=== PATIENT | female | born 1995 | race Caucasian/White ===

== ENCOUNTER 2017-02-02 21:53 | Emergency (ER) | payer OTHER ==
[2017-02-02 21:59] VITALS: BP 115/73; PULSE 132; RESP 18; TEMP 101.8
[2017-02-02] MEDS ORDERED: ACETAMINOPHEN TAB 500 MG TAB PO STA (22:02)
[2017-02-02] MEDS ORDERED: BENZONATATE 100 MG CAP PO STA (22:02)
[2017-02-02] MEDS ORDERED: IBUPROFEN 800 MG TAB PO STA (22:02)
--- NOTE | 2017-02-02 22:18 | ED ---
General Adult HPI - General Chief complaint: Fever Stated complaint: hot & cold/vomiting/cough Time Seen by Provider: 02/02/17 22:00 Source: patient, RN notes reviewed, old records reviewed Mode of arrival: ambulatory Limitations: no limitations - History of Present Illness Initial comments: This is a 22-year-old female here for evaluation of fever. Fever and chills, no significant medical history takes no medications occasional smoker. No drugs or alcohol recent about a year ago. Patient states she is having cough and congestion fevers and chills starting last night worsening today. She did take Motrin once but not consistently. Patient denies bowel pain, denies nausea vomiting or diarrhea. No significant travel history or sick contacts - Related Data Home Medications Medication Instructions Recorded Confirmed No Known Home Medications [No 02/02/17 02/02/17 Known Home Medications] Allergies Allergy/AdvReac Type Severity Reaction Status Date / Time Penicillins Allergy Intermediate Rash/Hives Verified 02/02/17 21:59 Review of Systems ROS Statement: Those systems with pertinent positive or pertinent negative responses have been documented in the HPI. ROS Other: All systems not noted in ROS Statement are negative. Past Medical History Past Medical History: No Reported History Additional Past Medical History / Comment(s): back pain History of Any Multi-Drug Resistant Organisms: None Reported Past Surgical History: Orthopedic Surgery Past Anesthesia/Blood Transfusion Reactions: No Reported Reaction Past Psychological History: Anxiety, Depression Smoking Status: Former smoker Past Alcohol Use History: None Reported Past Drug Use History: None Reported - Past Family History Mother Family Medical History: No Reported History General Exam Limitations: no limitations General appearance: alert, in no apparent distress Head exam: Present: atraumatic, normocephalic, normal inspection Eye exam: Present: normal appearance, PERRL, EOMI. Absent: scleral icterus, conjunctival injection, periorbital swelling ENT exam: Present: mucous membranes dry Neck exam: Present: normal inspection. Absent: tenderness, meningismus, lymphadenopathy Respiratory exam: Present: normal lung sounds bilaterally. Absent: respiratory distress, wheezes, rales, rhonchi, stridor Cardiovascular Exam: Present: normal rhythm, tachycardia, normal heart sounds. Absent: systolic murmur, diastolic murmur, rubs, gallop, clicks GI/Abdominal exam: Present: soft, normal bowel sounds. Absent: distended, tenderness, guarding, rebound, rigid Extremities exam: Present: normal inspection, full ROM, normal capillary refill. Absent: tenderness, pedal edema, joint swelling, calf tenderness Back exam: Present: normal inspection Neurological exam: Present: alert, oriented X3, CN II-XII intact Psychiatric exam: Present: normal affect, normal mood Skin exam: Present: warm, dry, intact, normal color. Absent: rash Course Vital Signs 02/02/17 21:56 Temperature 101.8 F H Pulse Rate 132 H Respiratory 18 Rate Blood Pressure 115/73 O2 Sat by Pulse 97 Oximetry - Reevaluation(s) Reevaluation #1: 02/02/17 22:17 Patient's symptoms are much improved Medical Decision Making - Medical Decision Making 21 female here for evaluation of fever. Patient having continued fever and chills, cough chest x-ray is negative for pneumonia, patient positive influenza. Patient will be discharged home with appropriate fever treatment and cough suppressant, Tamiflu. - Radiology Data Radiology results: report reviewed (Chest x-ray is negative for acute disease), image reviewed Disposition Clinical Impression: Influenza, Fever Disposition: HOME SELF-CARE Condition: Good Instructions: Fever in Adults (ED), Influenza (ED) Referrals: Ken Gandara DO [Primary Care Provider] - 1-2 days
--- NOTE | 2017-02-02 22:33 | XR ---
EXAMINATION TYPE: XR chest 2V DATE OF EXAM: 02/02/2017 10:17 PM COMPARISON: 11/01/2014 HISTORY: Chest pain TECHNIQUE: Frontal and lateral views of the chest are obtained. FINDINGS: Heart and mediastinum are normal. Lungs are clear. Diaphragm is normal. Bony thorax and so ft tissues appear normal. IMPRESSION: Normal chest. No change.
== END 2017-02-02 22:45 | disposition home or self-care (01) ==
LOC: EC 21:53
DX: J11.1 Influenza due to unidentified influenza virus with other respiratory manifestations (principal); Z87.891 Personal history of nicotine dependence; Z88.0 Allergy status to penicillin
CPT/HCPCS: 71020; 99284

== ENCOUNTER 2017-02-08 10:43 | Emergency (ER) | payer OTHER ==
[2017-02-08 10:52] VITALS: RESP 16
[2017-02-08] MEDS ORDERED: ACETAMINOPHEN IV (For NPO) 1,000 MG in EMPTY BAG 1 BAG IVPB STA (11:15)
[2017-02-08] MEDS ORDERED: ONDANSETRON 4 MG/2 ML VIAL IVP STA (11:15)
[2017-02-08] MEDS ORDERED: SODIUM CHLORIDE 0.9% 1,000 ML IV ONE (11:15)
--- NOTE | 2017-02-08 11:17 | ED ---
General Adult HPI - General Chief complaint: Nausea/Vomiting/Diarrhea Stated complaint: ear ache Time Seen by Provider: 02/08/17 11:02 Source: patient, RN notes reviewed, old records reviewed Mode of arrival: ambulatory Limitations: no limitations - History of Present Illness Initial comments: 21-year-old female presenting for nausea, vomiting and diarrhea. Patient states that she was seen about 5 days ago for similar symptoms and was diagnosed with the flu. She states she was started on Tamiflu and has been taking his medication. She states that she feels like the side effects of the medication were worsen than having the flu. She states that she has now developed diarrhea over the past 2 days as well. She feels that she can't keep any food down. She denies any significant abdominal pain associated. However she does mention that she is developed a right-sided earache that has been pretty intense over the past 2 days. She denies any fevers or chills. She also states that her primary doctor wanted her to be evaluated because she had a positive test in December and had a significant amount of bleeding at the beginning of January. She denies any active vaginal bleeding or lower abdominal pain at this time. She has not had any follow-up testing. - Related Data Home Medications Medication Instructions Recorded Confirmed Acetaminophen Tab [Tylenol Tab] 500 mg PO Q8H PRN 02/08/17 02/08/17 Ibuprofen [Motrin] 600 mg PO Q8H PRN 02/08/17 02/08/17 Previous Rx's Medication Instructions Recorded Oseltamivir [Tamiflu] 75 mg PO Q12HR #14 cap 02/02/17 Azithromycin [Zithromax] 250 mg PO DAILY #6 tab 02/08/17 Dicyclomine [Bentyl] 10 mg PO QID PRN #16 capsule 02/08/17 Ondansetron Odt [Zofran Odt] 4 mg PO Q8HR PRN #12 tab 02/08/17 Allergies Allergy/AdvReac Type Severity Reaction Status Date / Time Penicillins Allergy Intermediate Rash/Hives Verified 02/08/17 11:12 Review of Systems ROS Statement: Those systems with pertinent positive or pertinent negative responses have been documented in the HPI. ROS Other: All systems not noted in ROS Statement are negative. Past Medical History Past Medical History: No Reported History Additional Past Medical History / Comment(s): back pain History of Any Multi-Drug Resistant Organisms: None Reported Past Surgical History: Orthopedic Surgery Past Anesthesia/Blood Transfusion Reactions: No Reported Reaction Past Psychological History: Anxiety, Depression Smoking Status: Former smoker Past Alcohol Use History: None Reported Past Drug Use History: None Reported - Past Family History Mother Family Medical History: No Reported History General Exam - General Exam Comments Initial Comments: General: Awake and Alert. No acute distress. Does not appear acutely ill. Eyes: LOGAN, EOM intact. No nystagmus. No scleral icterus. HENT: Atraumatic, normocephalic. Mucous membranes moist. Trachea midline. Right TM with significant erythema. Left TM normal. Oral mucous membranes dry. Neck: The neck is supple, there is no tenderness or JVD. Cardiovascular: Regular rate and rhythm. No murmur, rub, or gallop is appreciated. Distal pulses intact. Respiratory: Lungs are clear to auscultation bilaterally. No wheezes, rales, rhonchi. No respiratory distress. Gastrointestinal: Soft, Nontender. No rebound or guarding. Non-distended. No masses or organomegaly noted. No CVA tenderness. Musculoskeletal: No tenderness. Normal ROM. No gross deformity. No strength deficits. Neurological: A&Ox3. CN II-XII grossly intact, There are no obvious motor or sensory deficits. Coordination appears grossly intact. Speech is normal. Skin: Skin is warm and dry and no rashes or lesions are noted. Psychiatric: Cooperative, appropriate mood & affect, normal judgment. Limitations: no limitations Course Vital Signs 02/08/17 02/08/17 10:49 12:33 Temperature 98.3 F 98.0 F Pulse Rate 88 59 L Respiratory 16 16 Rate Blood Pressure 114/67 104/58 O2 Sat by Pulse 100 98 Oximetry Medical Decision Making - Medical Decision Making 21-year-old female presenting for nausea and vomiting and diarrhea. Patient appears stable on initial exam with stable vitals. No significant abdominal tenderness on exam. Lab work performed with stable CBC, stable BMP. UA without infection. negative. Discussed possible miscarriage in the setting of previously positive test in December. Patient denies any active abdominal pain or vaginal bleeding. No further workup recommended this time. Did discuss follow-up with her OB doctor and PCP. Patient does have evidence of otitis media on exam, covered for this with azithromycin as she has a penicillin ALLERGY. Otherwise prescribed medications for symptomatic management of her nausea and vomiting and diarrhea. Discussed staying well hydrated. Discussed concerning signs symptoms for immediate return to the ER. Patient is agreeable with plan and discharge home. - Lab Data Result diagrams: 02/08/17 11:30 02/08/17 11:30 Lab Results 02/08/17 02/08/17 02/08/17 Range/Units 11:30 11:30 11:34 WBC 4.3 (3.8-10.6) k/uL RBC 4.58 (3.80-5.40) m/uL Hgb 12.8 (11.4-16.0) gm/dL Hct 39.3 (34.0-46.0) % MCV 85.8 (80.0-100.0) fL MCH 27.8 (25.0-35.0) pg MCHC 32.4 (31.0-37.0) g/dL RDW 13.7 (11.5-15.5) % Plt Count 151 (150-450) k/uL Neutrophils % 60 % Lymphocytes % 31 % Monocytes % 5 % Eosinophils % 1 % Basophils % 0 % Neutrophils # 2.6 (1.3-7.7) k/uL Lymphocytes # 1.3 (1.0-4.8) k/uL Monocytes # 0.2 (0-1.0) k/uL Eosinophils # 0.0 (0-0.7) k/uL Basophils # 0.0 (0-0.2) k/uL Sodium 144 (137-145) mmol/L Potassium 4.2 (3.5-5.1) mmol/L Chloride 104 (98-107) mmol/L Carbon Dioxide 28 (22-30) mmol/L Anion Gap 12 mmol/L BUN 10 (7-17) mg/dL Creatinine 0.61 (0.52-1.04) mg/dL Est GFR (MDRD) Af Amer >60 (>60 ml/min/1.73 sqM) Est GFR (MDRD) Non-Af >60 (>60 ml/min/1.73 sqM) Glucose 92 (74-99) mg/dL Calcium 9.3 (8.4-10.2) mg/dL Urine Color Urine Appearance (Clear) Urine pH (5.0-8.0) Ur Specific [place] (1.001-1.035) Urine Protein (Negative) Urine Glucose (UA) (Negative) Urine Ketones (Negative) Urine Blood (Negative) Urine Nitrite (Negative) Urine Bilirubin (Negative) Urine Urobilinogen (<2.0) mg/dL Ur Leukocyte Esterase (Negative) Urine HCG, Qual Not Detected (Not Detectd) 02/08/17 Range/Units 11:34 WBC (3.8-10.6) k/uL RBC (3.80-5.40) m/uL Hgb (11.4-16.0) gm/dL Hct (34.0-46.0) % MCV (80.0-100.0) fL MCH (25.0-35.0) pg MCHC (31.0-37.0) g/dL RDW (11.5-15.5) % Plt Count (150-450) k/uL Neutrophils % % Lymphocytes % % Monocytes % % Eosinophils % % Basophils % % Neutrophils # (1.3-7.7) k/uL Lymphocytes # (1.0-4.8) k/uL Monocytes # (0-1.0) k/uL Eosinophils # (0-0.7) k/uL Basophils # (0-0.2) k/uL Sodium (137-145) mmol/L Potassium (3.5-5.1) mmol/L Chloride (98-107) mmol/L Carbon Dioxide (22-30) mmol/L Anion Gap mmol/L BUN (7-17) mg/dL Creatinine (0.52-1.04) mg/dL Est GFR (MDRD) Af Amer (>60 ml/min/1.73 sqM) Est GFR (MDRD) Non-Af (>60 ml/min/1.73 sqM) Glucose (74-99) mg/dL Calcium (8.4-10.2) mg/dL Urine Color Yellow Urine Appearance Clear (Clear) Urine pH 5.5 (5.0-8.0) Ur Specific [place] 1.026 (1.001-1.035) Urine Protein Negative (Negative) Urine Glucose (UA) Negative (Negative) Urine Ketones Negative (Negative) Urine Blood Negative (Negative) Urine Nitrite Negative (Negative) Urine Bilirubin Negative (Negative) Urine Urobilinogen <2.0 (<2.0) mg/dL Ur Leukocyte Esterase Negative (Negative) Urine HCG, Qual (Not Detectd) Disposition Clinical Impression: Right otitis media, Nausea and vomiting, Nonspecific abdominal pain Disposition: HOME SELF-CARE Condition: Stable Instructions: Acute Nausea and Vomiting (ED), Abdominal Pain (ED), Otitis Media (ED) Prescriptions: Azithromycin [Zithromax] 250 mg PO DAILY #6 tab Dicyclomine [Bentyl] 10 mg PO QID PRN #16 capsule PRN Reason: abdominal cramping Ondansetron Odt [Zofran Odt] 4 mg PO Q8HR PRN #12 tab PRN Reason: Nausea Referrals: Ken Gandara DO [Primary Care Provider] - 1-2 days Time of Disposition: 13:00
[2017-02-08 11:43] LABS: Basophils % (A) 0 %; CH 28.1; CHCM 32.8; Eosinophils % (A) 1 %; HCT 39.3 % (34.0-46.0); HDW 2.66; HGB 12.8 gm/dL (11.4-16.0); Luc # (Auto) 0.11; Luc % (Auto) 3; Lymphocytes # (A) 1.3 k/uL (1.0-4.8); Lymphocytes % (A) 31 %; MCH 27.8 pg (25.0-35.0); MCHC 32.4 g/dL (31.0-37.0); MCV 85.8 fL (80.0-100.0); Mean Platelet Volume 7.6; Monocytes # (A) 0.2 k/uL (0-1.0); Monocytes % (A) 5 %; Neutrophils # (A) 2.6 k/uL (1.3-7.7); Neutrophils % (A) 60 %; RBC 4.58 m/uL (3.80-5.40); RDW 13.7 % (11.5-15.5); WBC 4.3 k/uL (3.8-10.6); WBC (Perox) 4.25
[2017-02-08 11:54] LABS: Anion Gap 12 mmol/L; Blood Urea Nitrogen 10 mg/dL (7-17); Calcium 9.3 mg/dL (8.4-10.2); Carbon Dioxide 28 mmol/L (22-30); Chloride 104 mmol/L (98-107); Glucose 92 mg/dL (74-99); Non-African American GFR(MDRD) >60 (>60 ml/min/1.73 sqM); Potassium 4.2 mmol/L (3.5-5.1); Sodium 144 mmol/L (137-145)
[2017-02-08 12:25] LABS: Appearance,Urine Clear (Clear); Bilirubin,Urine Negative (Negative); Glucose,Urine (UA) Negative (Negative); Ketones,Urine Negative (Negative); Leukocyte Esterase,Urine Negative (Negative); Nitrite,Urine Negative (Negative); PH, Urine 5.5 (5.0-8.0); Protein,Urine Negative (Negative); Specific Gravity,Urine 1.026 (1.001-1.035); UA Billing (MACRO vs. MICRO) CHEM; Urobilinogen,Urine <2.0 mg/dL (<2.0)
[2017-02-08 12:34] VITALS: BP 104/58; PULSE 59; TEMP 98
== END 2017-02-08 13:14 | disposition home or self-care (01) ==
LOC: EC 10:43
DX: H66.91 Otitis media, unspecified, right ear (principal); R11.2 Nausea with vomiting, unspecified; R10.9 Unspecified abdominal pain; Z87.891 Personal history of nicotine dependence; Z88.0 Allergy status to penicillin
CPT/HCPCS: 36415; 80048; 85025; 81003; 81025; 99284; 96365; 96375; J2405; J0131

== ENCOUNTER 2017-05-28 22:14 | Emergency (ER) | payer OTHER ==
[2017-05-28] MEDS ORDERED: SODIUM CHLORIDE 0.9% 1,000 ML IV STA ×2 (22:41)
[2017-05-28] MEDS ORDERED: ACETAMINOPHEN IV (For NPO) 1,000 MG in SALINE 100 100ML.BAG IVPB STA (22:49)
--- NOTE | 2017-05-28 22:52 | ED ---
General Adult HPI - General Chief complaint: Urogenital Stated complaint: Abd Pain Time Seen by Provider: 05/28/17 22:28 Source: patient, RN notes reviewed Mode of arrival: ambulatory Limitations: no limitations - History of Present Illness Initial comments: Patient 21-year-old female who presents emergency room today with a chief complaint of vaginal bleeding over the last 2 days. She does admit that she had what she thought. Normal menstrual cycle that started 5 days ago. She states she'll apply for 3 days had 2 days where she did not bleed. States she began bleeding again yesterday. Does admit to increased abdominal cramping pain. Describes a sharp type cramping in the middle of the abdomen radiating down. Patient does admit to vaginal bleeding passing larger "clots". States dark in color. States she does have a history of unusual menstrual cycle. Patient states she did take a test a few weeks ago which was negative. Patient does admit that she was diagnosed with bacterial vaginosis but lost her prescription is unsure if this is related. She denies any other complaints or symptoms at this time. Patient denies any recent shortness of breath, chest pain, back pain, nausea or vomiting, numbness or tingling, dysuria or hematuria, constipation or diarrhea, headaches or visual changes, or any other complaints. - Related Data Home Medications Medication Instructions Recorded Confirmed ALPRAZolam [Xanax] 2 mg PO DAILY PRN 05/28/17 05/28/17 Previous Rx's Medication Instructions Recorded metroNIDAZOLE [Flagyl] 500 mg PO TID 7 Days 05/29/17 Allergies Allergy/AdvReac Type Severity Reaction Status Date / Time Penicillins Allergy Intermediate Rash/Hives Verified 05/28/17 22:49 Review of Systems ROS Statement: Those systems with pertinent positive or pertinent negative responses have been documented in the HPI. ROS Other: All systems not noted in ROS Statement are negative. Past Medical History Past Medical History: No Reported History Additional Past Medical History / Comment(s): back pain History of Any Multi-Drug Resistant Organisms: None Reported Past Surgical History: Orthopedic Surgery Past Anesthesia/Blood Transfusion Reactions: No Reported Reaction Past Psychological History: Anxiety, Depression Smoking Status: Former smoker Past Alcohol Use History: None Reported Past Drug Use History: None Reported - Past Family History Mother Family Medical History: No Reported History General Exam - General Exam Comments Initial Comments: General: The patient is awake and alert, in no distress, and does not appear acutely ill. Eye: Pupils are equal, round and reactive to light, extra-ocular movements are intact. No nystagmus. There is normal conjunctiva bilaterally. No signs of icterus. Ears, nose, mouth and throat: There are moist mucous membranes and no oral lesions. Neck: The neck is supple, there is no tenderness or JVD. Cardiovascular: There is a regular rate and rhythm. No murmur, rub or gallop is appreciated. Respiratory: Lungs are clear to auscultation, respirations are non-labored, breath sounds are equal. No wheezes, stridor, rales, or rhonchi. Gastrointestinal: Patient appears to have. Normal bowel sounds. Soft on palpation. Patient does have mild tenderness both left and right lower quadrants. No rebound tenderness. No guarding. No CVA tenderness. Musculoskeletal: Normal ROM, no tenderness. Strength 5/5. Sensation intact. Pulses equal bilaterally 2+. Neurological: A&O x 3. CN II-XII intact, There are no obvious motor or sensory deficits. Coordination appears grossly intact. Speech is normal. Skin: Skin is warm and dry and no rashes or lesions are noted. Psychiatric: Cooperative, appropriate mood & affect, normal judgment. Limitations: no limitations Course Vital Signs 05/28/17 05/28/17 22:22 23:47 Temperature 100.8 F H 98.5 F Pulse Rate 110 H 79 Respiratory 20 18 Rate Blood Pressure 121/73 119/71 O2 Sat by Pulse 100 99 Oximetry Medical Decision Making - Medical Decision Making Case discussed in detail with attending physician Dr. Rae. Patient reexamined at this time shows no signs of distress resting comfortably. Patient 's labs reviewed 14,000 white count. Patient does have fever or heart 0.8F at triage. Patient's ultrasound shows no evidence for ovarian torsion. No free fluid. No adnexal mass. Patient's pelvic exam does reveal cervical motion tenderness. Treated with Rocephin and gentamicin in the emergency room. Patient does admit that she was diagnosed with bacterial vaginosis recently but also prescription. He'll be given dose of Flagyl and also prescription to go home with. Advised close follow-up with the [facility] and family doctor. Advised return here in the emergency room symptoms increase worsen. She states understanding and is in agreement. - Lab Data Result diagrams: 05/28/17 23:11 05/28/17 23:11 Lab Results 05/28/17 05/28/17 05/28/17 Range/Units 23:11 23:11 23:11 WBC 14.2 H (3.8-10.6) k/uL RBC 4.51 (3.80-5.40) m/uL Hgb 13.3 (11.4-16.0) gm/dL Hct 38.7 (34.0-46.0) % MCV 85.8 (80.0-100.0) fL MCH 29.4 (25.0-35.0) pg MCHC 34.3 (31.0-37.0) g/dL RDW 13.4 (11.5-15.5) % Plt Count 203 (150-450) k/uL Neutrophils % 78 % Lymphocytes % 16 % Monocytes % 4 % Eosinophils % 1 % Basophils % 0 % Neutrophils # 11.0 H (1.3-7.7) k/uL Lymphocytes # 2.3 (1.0-4.8) k/uL Monocytes # 0.6 (0-1.0) k/uL Eosinophils # 0.1 (0-0.7) k/uL Basophils # 0.1 (0-0.2) k/uL Sodium 144 (137-145) mmol/L Potassium 4.0 (3.5-5.1) mmol/L Chloride 104 (98-107) mmol/L Carbon Dioxide 25 (22-30) mmol/L Anion Gap 15 mmol/L BUN 10 (7-17) mg/dL Creatinine 0.90 (0.52-1.04) mg/dL Est GFR (MDRD) Af Amer >60 (>60 ml/min/1.73 sqM) Est GFR (MDRD) Non-Af >60 (>60 ml/min/1.73 sqM) Glucose 83 (74-99) mg/dL Plasma Lactic Acid Jovani 0.9 (0.7-2.0) mmol/L Calcium 10.1 (8.4-10.2) mg/dL Total Bilirubin 0.4 (0.2-1.3) mg/dL AST 19 (14-36) U/L ALT 26 (9-52) U/L Alkaline Phosphatase 68 (38-126) U/L Total Protein 7.9 (6.3-8.2) g/dL Albumin 5.0 (3.5-5.0) g/dL Amylase 47 (30-110) U/L Lipase 115 (23-300) U/L Urine Color Urine Appearance (Clear) Urine pH (5.0-8.0) Ur Specific [place] (1.001-1.035) Urine Protein (Negative) Urine Glucose (UA) (Negative) Urine Ketones (Negative) Urine Blood (Negative) Urine Nitrite (Negative) Urine Bilirubin (Negative) Urine Urobilinogen (<2.0) mg/dL Ur Leukocyte Esterase (Negative) Urine RBC (0-5) /hpf Urine WBC (0-5) /hpf Ur Squamous Epith Cells (0-4) /hpf Amorphous Sediment (None) /hpf Urine Bacteria (None) /hpf Urine Mucus (None) /hpf Urine HCG, Qual (Not Detectd) 05/28/17 05/28/17 Range/Units 23:11 23:11 WBC (3.8-10.6) k/uL RBC (3.80-5.40) m/uL Hgb (11.4-16.0) gm/dL Hct (34.0-46.0) % MCV (80.0-100.0) fL MCH (25.0-35.0) pg MCHC (31.0-37.0) g/dL RDW (11.5-15.5) % Plt Count (150-450) k/uL Neutrophils % % Lymphocytes % % Monocytes % % Eosinophils % % Basophils % % Neutrophils # (1.3-7.7) k/uL Lymphocytes # (1.0-4.8) k/uL Monocytes # (0-1.0) k/uL Eosinophils # (0-0.7) k/uL Basophils # (0-0.2) k/uL Sodium (137-145) mmol/L Potassium (3.5-5.1) mmol/L Chloride (98-107) mmol/L Carbon Dioxide (22-30) mmol/L Anion Gap mmol/L BUN (7-17) mg/dL Creatinine (0.52-1.04) mg/dL Est GFR (MDRD) Af Amer (>60 ml/min/1.73 sqM) Est GFR (MDRD) Non-Af (>60 ml/min/1.73 sqM) Glucose (74-99) mg/dL Plasma Lactic Acid Jovani (0.7-2.0) mmol/L Calcium (8.4-10.2) mg/dL Total Bilirubin (0.2-1.3) mg/dL AST (14-36) U/L ALT (9-52) U/L Alkaline Phosphatase (38-126) U/L Total Protein (6.3-8.2) g/dL Albumin (3.5-5.0) g/dL Amylase (30-110) U/L Lipase (23-300) U/L Urine Color Yellow Urine Appearance Cloudy H (Clear) Urine pH 5.5 (5.0-8.0) Ur Specific [place] 1.018 (1.001-1.035) Urine Protein Negative (Negative) Urine Glucose (UA) Negative (Negative) Urine Ketones Negative (Negative) Urine Blood Small H (Negative) Urine Nitrite Negative (Negative) Urine Bilirubin Negative (Negative) Urine Urobilinogen 2.0 (<2.0) mg/dL Ur Leukocyte Esterase Moderate H (Negative) Urine RBC 6 H (0-5) /hpf Urine WBC 21 H (0-5) /hpf Ur Squamous Epith Cells 11 H (0-4) /hpf Amorphous Sediment Rare H (None) /hpf Urine Bacteria Rare H (None) /hpf Urine Mucus Rare H (None) /hpf Urine HCG, Qual Not Detected (Not Detectd) Disposition Clinical Impression: Cervicitis Disposition: HOME SELF-CARE Condition: Stable Instructions: Cervicitis (ED) Additional Instructions: Please use medication as discussed. Please follow-up with [facility]/family doctor in the next 2 days of symptoms have not improved. Please return to emergency room if the symptoms increase or worsen or for any other concerns. Prescriptions: metroNIDAZOLE [Flagyl] 500 mg PO TID 7 Days Referrals: Ken Gandara DO [Primary Care Provider] - 1-2 days Time of Disposition: 00:39
[2017-05-28] MEDS ORDERED: ACETAMINOPHEN IV (For NPO) 1,000 MG in SALINE 1 100ML.BAG IVPB STA (22:55)
[2017-05-28 23:26] LABS: Basophils # (A) 0.1 k/uL (0-0.2); Basophils % (A) 0 %; CH 27.9; CHCM 32.7; Eosinophils # (A) 0.1 k/uL (0-0.7); Eosinophils % (A) 1 %; HCT 38.7 % (34.0-46.0); HDW 2.25; HGB 13.3 gm/dL (11.4-16.0); Luc # (Auto) 0.19; Luc % (Auto) 1; Lymphocytes # (A) 2.3 k/uL (1.0-4.8); Lymphocytes % (A) 16 %; MCH 29.4 pg (25.0-35.0); MCHC 34.3 g/dL (31.0-37.0); MCV 85.8 fL (80.0-100.0); Mean Platelet Volume 7.9; Monocytes # (A) 0.6 k/uL (0-1.0); Monocytes % (A) 4 %; Neutrophils % (A) 78 %; RBC 4.51 m/uL (3.80-5.40); RDW 13.4 % (11.5-15.5); WBC 14.2 k/uL (3.8-10.6); WBC (Perox) 14.63
[2017-05-28 23:36] LABS: ALT 26 U/L (9-52); AST 19 U/L (14-36); Alkaline Phosphatase 68 U/L (38-126); Amylase 47 U/L (30-110); Anion Gap 15 mmol/L; Blood Urea Nitrogen 10 mg/dL (7-17); Calcium 10.1 mg/dL (8.4-10.2); Carbon Dioxide 25 mmol/L (22-30); Chloride 104 mmol/L (98-107); Glucose 83 mg/dL (74-99); Non-African American GFR(MDRD) >60 (>60 ml/min/1.73 sqM); Sodium 144 mmol/L (137-145); Total Bilirubin 0.4 mg/dL (0.2-1.3); Total Protein 7.9 g/dL (6.3-8.2)
[2017-05-28 23:41] LABS: Amorphous Sediment,Urine Rare /hpf; Appearance,Urine Cloudy (Clear); Bacteria,Urine Rare /hpf; Bilirubin,Urine Negative (Negative); Glucose,Urine (UA) Negative (Negative); Ketones,Urine Negative (Negative); Leukocyte Esterase,Urine Moderate (Negative); Mucus,Urine Rare /hpf; Nitrite,Urine Negative (Negative); PH, Urine 5.5 (5.0-8.0); Particle Count 6917; Protein,Urine Negative (Negative); RBC,Urine 6 /hpf (0-5); Specific Gravity,Urine 1.018 (1.001-1.035); Squamous Epithelial Cell,Urine 11 /hpf (0-4); UA Billing (MACRO vs. MICRO) MICRO; WBC,Urine 21 /hpf (0-5)
[2017-05-28 23:48] VITALS: RESP 18
--- NOTE | 2017-05-29 00:19 | US ---
History: Reason: pain Exam: US PELVIC/ENDOVAG Comparison: FINDINGS: The uterus measures 8.4 x 4 x 4.1 cm with a volume of 71.3 cc. 4.5 mm endometrial stripe. The right ovary measures 3.6 x 1.7 x 1.6 cm with a volume of 4.9 cc. A simple dominant functional follicle right ovary measuring 1.2 cm. Small 2 mm echogenic focus at the right ovary may be related to small calcification or small focus of fat, nonspecific. There is evidence of arterial and venous flow to the right ovarian tissue. The left ovary measures 3.7 x 2.5 x 2.4 cm with a volume of 11.6 cc. Evidence of arterial and venous flow is seen to the left ovarian tissue. No evidence of adnexal mass or free fluid. IMPRESSION: A simple dominant functional follicle right ovary measuring 1.2 cm. There is evidence of arterial and venous flow to the right and left ovarian tissue. No evidence of adnexal mass or free fluid.
[2017-05-29] MEDS ORDERED: AZITHROMYCIN 500 MG TAB PO STA (00:35)
[2017-05-29] MEDS ORDERED: metroNIDAZOLE 500 MG TAB PO STA (00:35)
[2017-05-29 00:51] VITALS: BP 108/54; PULSE 88; TEMP 99.3
== END 2017-05-29 01:14 | disposition home or self-care (01) ==
LOC: EC 22:14
DX: N72 Inflammatory disease of cervix uteri (principal); Z87.891 Personal history of nicotine dependence; Z88.0 Allergy status to penicillin
CPT/HCPCS: 99284; 96365; 96375; 96361; 36415; 80053; 86696; 86694; 86695; 87591; 87491; 82150; 83605; 83690; 85025; 81001; 81025; 87040; 87808; 87070; 87086; 93975; 76830; J0696; J0131; 87205

== ENCOUNTER 2017-09-12 23:31 | Emergency (ER) | payer OTHER ==
[2017-09-12 23:39] VITALS: BP 115/55; PULSE 20; RESP 18; TEMP 98.1
--- NOTE | 2017-09-12 23:52 | ED ---
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 She is right-hand dominant. While working on one of the ovens the lid came down and touch the dorsal surface over right hand. She has an area approximately 4 cm that's read in the central area that's blistered 1 cm round. Full range of motion neurovascular status intact. Patient's tetanus shots are up-to-date. - Related Data Home Medications Medication Instructions Recorded Confirmed ALPRAZolam [Xanax] 2 mg PO DAILY PRN 05/28/17 05/28/17 Previous Rx's Medication Instructions Recorded metroNIDAZOLE [Flagyl] 500 mg PO TID 7 Days tab 05/29/17 Allergies Allergy/AdvReac Type Severity Reaction Status Date / Time Penicillins Allergy Intermediate Rash/Hives Verified 09/12/17 23:39 Review of Systems ROS Statement: Those systems with pertinent positive or pertinent negative responses have been documented in the HPI. review of systems. No other complaints other than pain with burn to her dominant right hand. Less than one quarter percent total body surface area no significant past medical problems. Patient reports that she had surgery to her right ankle. Family history no cancers. She has ALLERGIES to penicillin. She does smoke strongly encouraged to stop. Denies alcohol use. ROS Other: All systems not noted in ROS Statement are negative. Past Medical History Past Medical History: No Reported History Additional Past Medical History / Comment(s): back pain History of Any Multi-Drug Resistant Organisms: None Reported Past Surgical History: Orthopedic Surgery Past Anesthesia/Blood Transfusion Reactions: No Reported Reaction Past Psychological History: Anxiety, Depression Smoking Status: Former smoker Past Alcohol Use History: None Reported Past Drug Use History: None Reported - Past Family History Mother Family Medical History: No Reported History General Exam - General Exam Comments Initial Comments: physical exam, Vital signs shows temperature 98.1 respiratory rate 18 pulse ox on percent room air blood pressure 115/55. the patient reports accidentally getting burned while on the job. She has an area proximal 4 cm in size which is reddened on the dorsal surface of her dominant right hand. Just at the base of the thumb. Range of motion is normal. There is a 1 cm size makah on the middle this blistered. This was cleaned and dressed with bacitracin. Patient's immunizations are up-to-date. Neurovascular status to the hand and fingers intact. No other complaints or problems. Limitations: no limitations Course Vital Signs 09/12/17 23:34 Temperature 98.1 F Pulse Rate 20 L Respiratory 18 Rate Blood Pressure 115/55 O2 Sat by Pulse 100 Oximetry Medical Decision Making - Medical Decision Making medical decision-making the patient will be given tomorrow off. She'll have the burned area covered with bacitracin and told to continue doing this at home. She is to follow-up with [facility] with family doctor as needed. Disposition Clinical Impression: Burn of right hand Disposition: HOME SELF-CARE Condition: Fair Instructions: Second Degree Burn (ED) Additional Instructions: Clean burn twice daily. Apply bacitracin. Follow-up with family doctor or [facility] as needed Referrals: Ken Gandara DO [Primary Care Provider] - 1-2 days Time of Disposition: 00:02
== END 2017-09-13 00:16 | disposition home or self-care (01) ==
LOC: EC 23:31
DX: T23.011A Burn of unspecified degree of right thumb (nail), initial encounter (principal); T23.061A Burn of unspecified degree of back of right hand, initial encounter; Z87.891 Personal history of nicotine dependence; Z88.0 Allergy status to penicillin; X16.XXXA Contact with hot heating appliances, radiators and pipes, initial encounter; Y92.511 Restaurant or cafe as the place of occurrence of the external cause; Y93.89 Activity, other specified; Y99.0 Civilian activity done for income or pay
CPT/HCPCS: 99283

== ENCOUNTER 2018-01-30 18:53 | Emergency (ER) | payer OTHER ==
[2018-01-30 19:17] VITALS: BP 124/81; PULSE 89; RESP 18; TEMP 98.1
--- NOTE | 2018-01-30 19:42 | ED ---
Skin/Abscess/FB HPI - General Chief complaint: Skin/Abscess/Foreign Body Stated complaint: Rash on arm Time Seen by Provider: 01/30/18 19:08 Source: patient, RN notes reviewed Mode of arrival: ambulatory Limitations: no limitations - History of Present Illness Initial comments: This is a 22-year-old female who presents to the emergency department with chief complaint of rash. Patient states that yesterday she noticed a rash on her right wrist and forearm. Today she noticed the rash is now on her left forearm. Patient denies any new exposure to body washes, laundry detergents or lotions. 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 States she has not been taking any medications or using anything topically for it. She states that the rash is itchy and not painful. Denies fever, chills, chest pain, shortness of breath, abdominal pain, nausea or vomiting, constipation or diarrhea, dysuria or hematuria, numbness or tingling, headache or vision changes. - Related Data Home Medications Medication Instructions Recorded Confirmed ALPRAZolam [Xanax] 2 mg PO DAILY PRN 05/28/17 05/28/17 Previous Rx's Medication Instructions Recorded metroNIDAZOLE [Flagyl] 500 mg PO TID 7 Days tab 05/29/17 Triamcinolone 0.1% Cream [Kenalog] 1 applicatio TOPICAL BID #1 tube 01/30/18 Allergies Allergy/AdvReac Type Severity Reaction Status Date / Time Penicillins Allergy Intermediate Rash/Hives Verified 01/30/18 19:17 Review of Systems ROS Statement: Those systems with pertinent positive or pertinent negative responses have been documented in the HPI. ROS Other: All systems not noted in ROS Statement are negative. Past Medical History Past Medical History: No Reported History Additional Past Medical History / Comment(s): back pain History of Any Multi-Drug Resistant Organisms: None Reported Past Surgical History: Orthopedic Surgery Past Anesthesia/Blood Transfusion Reactions: No Reported Reaction Past Psychological History: Anxiety, Depression Smoking Status: Former smoker Past Alcohol Use History: None Reported Past Drug Use History: None Reported - Past Family History Mother Family Medical History: No Reported History General Exam - General Exam Comments Initial Comments: General: Awake and alert, well-developed; in no apparent distress. HEENT: Head atraumatic, normocephalic. Pupils are equal, round and reactive to light. Extraocular movements intact. Oropharynx moist without erythema or exudate. Neck: Supple. Normal ROM. Cardiovascular: Regular rate and rhythm. No murmurs, rubs or gallops. Chest symmetrical. Respiratory: Lungs clear to auscultation bilaterally. No wheezes, rales or rhonchi. Normal respiratory effort with no use of accessory muscles. Musculoskeletal: Normal ROM, no tenderness bilateral upper and lower extremities. Ambulating normally. Skin: [place], warm and dry. Scaly dry erythematous maculopapular eczematous-like rash bilateral forearms and hands. Neurological: Alert and oriented x3. CN II-XII grossly intact. Speech is fluent and answers are appropriate. No focal neuro deficits. Psychiatric: Normal mood and affect. No overt signs of depression or anxiety noted. Limitations: no limitations Course Vital Signs 01/30/18 19:15 Temperature 98.1 F Pulse Rate 89 Respiratory 18 Rate Blood Pressure 124/81 O2 Sat by Pulse 97 Oximetry Medical Decision Making - Medical Decision Making This is a 22-year-old female who presents to the emergency department with chief complaint of rash. 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 She has an eczematous-like rash on bilateral forearms and hands. She will be started on a topical steroid. I recommended using one twice a day for up to 2 weeks. She may use for any future flareups. I also recommended using a thick cream moisturizer. Patient is in no acute distress and will be discharged home. She is in agreement with plan and voices understanding. All questions were answered. Disposition Clinical Impression: Contact dermatitis Disposition: HOME SELF-CARE Condition: Good Instructions: Contact Dermatitis (ED) Additional Instructions: Please apply topical steroid twice a day for up to 2 weeks. Please use a thick cream-based moisturizer such as Eucerin, Aquaphor or CeraVe. Please follow up with primary care provider within 1-2 days. Return to emergency department if symptoms should worsen or any concerns arise. Prescriptions: Triamcinolone 0.1% Cream [Kenalog] 1 applicatio TOPICAL BID #1 tube Referrals: Ken Gandara DO [Primary Care Provider] - 1-2 days Time of Disposition: 19:42
== END 2018-01-30 19:47 | disposition home or self-care (01) ==
LOC: EC 18:53
DX: L25.3 Unspecified contact dermatitis due to other chemical products (principal); Z87.891 Personal history of nicotine dependence; Z88.0 Allergy status to penicillin
CPT/HCPCS: 99282

== ENCOUNTER 2018-05-21 20:04 | Emergency (ER) | payer OTHER ==
[2018-05-21 20:14] VITALS: BP 134/76; PULSE 95; RESP 16; TEMP 98.5
--- NOTE | 2018-05-21 21:27 | XR ---
EXAMINATION TYPE: XR chest 2V DATE OF EXAM: 05/21/2018 COMPARISON: 02/02/2017 HISTORY: Cough TECHNIQUE: Frontal and lateral views of the chest are obtained. FINDINGS: Heart and mediastinum are normal. Lungs are clear. Diaphragm is normal. Bony thorax is int act. IMPRESSION: Normal chest. No change.
--- NOTE | 2018-05-21 21:43 | ED ---
URI HPI - General Chief Complaint: Upper Respiratory Infection Stated Complaint: sore throat/cough Time Seen by Provider: 05/21/18 20:31 Source: patient Mode of arrival: ambulatory Limitations: no limitations - History of Present Illness Initial Comments: 22-year-old female patient presents to the emergency department today for evaluation of upper respiratory symptoms. Patient states that she has had cough , nasal congestion, and sore throat for the last week. Patient states that she was seen and evaluated urgent care and diagnosed with pharyngitis. States she has been taking Phenergan for her cough without any relief of symptoms. Patient states that she has had some chest tightness and has been coughing up green sputum. Patient does admit to smoking tobacco. She denies any chance of . She denies any fevers or chills. Patient denies any recent rash, shortness breath, chest pain, abdominal pain, nausea, vomiting, diarrhea, constipation, back pain, numbness, tingling, dizziness, weakness, hematuria, dysuria, urinary urgency, urinary frequency, headache, visual changes, or any other complaints. - Related Data Home Medications Medication Instructions Recorded Confirmed ALPRAZolam [Xanax] 2 mg PO DAILY PRN 05/28/17 05/21/18 Previous Rx's Medication Instructions Recorded Albuterol Sulfate [Proair Hfa] 1 - 2 puff INHALATION Q6HR PRN #1 05/21/18 inhaler Allergies Allergy/AdvReac Type Severity Reaction Status Date / Time Penicillins Allergy Intermediate Rash/Hives Verified 05/21/18 20:14 Review of Systems ROS Statement: Those systems with pertinent positive or pertinent negative responses have been documented in the HPI. ROS Other: All systems not noted in ROS Statement are negative. Past Medical History Past Medical History: No Reported History Additional Past Medical History / Comment(s): back pain History of Any Multi-Drug Resistant Organisms: None Reported Past Surgical History: Orthopedic Surgery Past Anesthesia/Blood Transfusion Reactions: No Reported Reaction Past Psychological History: Anxiety, Depression Smoking Status: Former smoker Past Alcohol Use History: None Reported Past Drug Use History: None Reported - Past Family History Mother Family Medical History: No Reported History General Exam Limitations: no limitations General appearance: alert, in no apparent distress, other (This is a well- developed, well-nourished adult female patient in no acute distress. Vital signs upon presentation are temperature 98.5F, pulse 95, respirations 16, blood pressure 134/76, pulse ox 97% on room air.) Eye exam: Present: normal appearance, PERRL, EOMI. Absent: scleral icterus, conjunctival injection, periorbital swelling ENT exam: Present: normal exam, mucous membranes moist, TM's normal bilaterally. Absent: normal oropharynx (Pharyngeal erythema, no tonsillar exudate, no tonsillar hypertrophy) Neck exam: Present: normal inspection. Absent: tenderness, meningismus, lymphadenopathy Respiratory exam: Present: normal lung sounds bilaterally. Absent: respiratory distress, wheezes, rales, rhonchi, stridor Cardiovascular Exam: Present: regular rate, normal rhythm, normal heart sounds. Absent: systolic murmur, diastolic murmur, rubs, gallop, clicks Neurological exam: Present: alert, oriented X3, CN II-XII intact Psychiatric exam: Present: normal affect, normal mood Skin exam: Present: warm, dry, intact, normal color. Absent: rash Course Vital Signs 05/21/18 20:11 Temperature 98.5 F Pulse Rate 95 Respiratory 16 Rate Blood Pressure 134/76 O2 Sat by Pulse 97 Oximetry Medical Decision Making - Medical Decision Making 22-year-old female patient presents to the emergency department today for evaluation of upper respiratory symptoms. Physical examination is unremarkable. Lungs are clear to auscultation with good air movement. Visual inspection of the throat does reveal pharyngeal erythema with no tonsillar hypertrophy or exudate. Patient has no lymphadenopathy. Patient is afebrile and vital signs are stable. Chest x-ray shows no acute cardiopulmonary process. I did discuss with patient that her symptoms are most likely related to a viral upper respiratory infection. She'll be given a Pro Air inhaler for chest tightness. She is instructed to increase fluids, use ibuprofen for throat pain, and to use [id number] nasal decongestants and cough remedies like DayQuil or NyQuil. She is instructed to follow-up with the primary care physician for recheck in 1-2 days. Return parameters discussed in detail. She verbalizes understanding and agrees with this plan. - Radiology Data Radiology results: report reviewed, image reviewed Two-view x-ray of the chest is obtained. Heart and mediastinum are normal. Lungs are clear. Diaphragm is normal. Bony thorax is intact. Impression by Dr. Ostermann shows normal chest with no change. Disposition Clinical Impression: Viral upper respiratory infection Disposition: HOME SELF-CARE Condition: Good Instructions: Upper Respiratory Infection (ED) Additional Instructions: Increase fluids. Take Motrin for throat pain. Use inhaler for chest tightness and shortness of breath. Use [id number] cough suppressants and cold remedies like NyQuil and DayQuil for symptom relief. Follow-up with your primary care physician for recheck in 1-2 days. Return here immediately for any new, worsening, or concerning symptoms. Prescriptions: Albuterol Sulfate [Proair Hfa] 1 - 2 puff INHALATION Q6HR PRN #1 inhaler PRN Reason: Shortness Of Breath Is patient prescribed a controlled substance at d/c from ED?: No Referrals: None,Stated [Primary Care Provider] - 1-2 days Time of Disposition: 21:42
== END 2018-05-21 22:01 | disposition home or self-care (01) ==
LOC: EC 20:04
DX: J06.9 Acute upper respiratory infection, unspecified (principal); R07.89 Other chest pain; Z87.891 Personal history of nicotine dependence; Z88.0 Allergy status to penicillin
CPT/HCPCS: 71046; 99283

== ENCOUNTER 2018-10-31 18:23 | Emergency (ER) | payer OTHER ==
[2018-10-31 19:55] LABS: Basophils % (A) 1 %; Eosinophils # (A) 0.1 k/uL (0-0.7); Eosinophils % (A) 2 %; HCT 44.5 % (34.0-46.0); HGB 14.4 gm/dL (11.4-16.0); Lymphocytes # (A) 3.1 k/uL (1.0-4.8); Lymphocytes % (A) 39 %; MCH 28.9 pg (25.0-35.0); MCHC 32.4 g/dL (31.0-37.0); Mean Platelet Volume 7.6; Monocytes # (A) 0.5 k/uL (0-1.0); Monocytes % (A) 6 %; Neutrophils % (A) 51 %; Platelet Count 198 k/uL (150-450); RBC 4.99 m/uL (3.80-5.40); RDW 13.5 % (11.5-15.5); WBC 7.8 k/uL (3.8-10.6)
[2018-10-31 19:59] LABS: Appearance,Urine Cloudy (Clear); Bilirubin,Urine Negative (Negative); Blood,Urine Negative (Negative); Color,Urine Yellow; Glucose,Urine (UA) Negative (Negative); Ketones,Urine Negative (Negative); Leukocyte Esterase,Urine Negative (Negative); Mucus,Urine Few /hpf; Nitrite,Urine Negative (Negative); Protein,Urine Trace (Negative); RBC,Urine 2 /hpf (0-5); Specific Gravity,Urine 1.025 (1.001-1.035); Squamous Epithelial Cell,Urine 8 /hpf (0-4); Urobilinogen,Urine <2.0 mg/dL (<2.0); WBC,Urine 1 /hpf (0-5)
[2018-10-31 20:05] LABS: ALT 28 U/L (9-52); AST 21 U/L (14-36); Albumin 4.1 g/dL (3.5-5.0); Alkaline Phosphatase 54 U/L (38-126); Anion Gap 8 mmol/L; Blood Urea Nitrogen 13 mg/dL (7-17); Calcium 9.7 mg/dL (8.4-10.2); Carbon Dioxide 28 mmol/L (22-30); Chloride 105 mmol/L (98-107); Glucose 91 mg/dL (74-99); Potassium 4.1 mmol/L (3.5-5.1); Sodium 141 mmol/L (137-145); Total Bilirubin 0.2 mg/dL (0.2-1.3); Total Protein 6.8 g/dL (6.3-8.2)
[2018-10-31] MEDS ORDERED: KETOROLAC 30 MG/ML 1 ML VIAL IVP STA (20:17)
--- NOTE | 2018-10-31 20:22 | ED ---
Abdominal Pain HPI - General Chief Complaint: Abdominal Pain Stated Complaint: ABDOMINAL PAIN Time Seen by Provider: 10/31/18 19:01 Source: patient Mode of arrival: ambulatory Limitations: no limitations - History of Present Illness Initial Comments: 23-year-old female patient presents to the emergency department today for evaluation of pelvic pain and vaginal discharge. Patient states that for the last year and a half she has been having frequent episodes of pelvic pain that is bilateral. Patient states at times the pain gets so bad pelvis are over. Patient states she has also had white vaginal discharge. Patient states it is odorous. States that some days it is very heavy and some days it is light. States that she has been treated for yeast infection twice and it has not gone away. Patient states that she was seen here recently diagnosed with urinary tract infection was treated for this. Patient states she is still having symptoms of a cane concerned. Patient denies chance of . She is with two spontaneous abortions and one elective abortions over two years ago. She denies any fevers or chills. She denies any hematuria, dysuria, urinary frequency, urinary urgency. She denies any nausea, vomiting, diarrhea, constipation. Denies any abnormal vaginal bleeding. Last period was 2017. Patient denies any recent rash, shortness breath, chest pain, back pain, numbness, tingling, dizziness, weakness, headache, visual changes, or any other complaints. - Related Data Previous Rx's Medication Instructions Recorded metroNIDAZOLE [Flagyl] 500 mg PO BID #14 tab 10/31/18 Allergies Allergy/AdvReac Type Severity Reaction Status Date / Time Penicillins Allergy Intermediate Rash/Hives Verified 10/31/18 19:06 Review of Systems ROS Statement: Those systems with pertinent positive or pertinent negative responses have been documented in the HPI. ROS Other: All systems not noted in ROS Statement are negative. Past Medical History Past Medical History: No Reported History Additional Past Medical History / Comment(s): back pain History of Any Multi-Drug Resistant Organisms: None Reported Past Surgical History: Orthopedic Surgery Past Anesthesia/Blood Transfusion Reactions: No Reported Reaction Past Psychological History: Anxiety, Depression Smoking Status: Former smoker Past Alcohol Use History: None Reported Past Drug Use History: None Reported - Past Family History Mother Family Medical History: No Reported History General Exam Limitations: no limitations General appearance: alert, in no apparent distress, other (This is a well- developed, well-nourished adult female patient in no acute distress. Vital signs upon presentation are temperature 97.9F, pulse 73, respirations 16, blood pressure 109/70, pulse ox 100% on room air.) Eye exam: Present: normal appearance, PERRL, EOMI. Absent: scleral icterus, conjunctival injection, periorbital swelling Respiratory exam: Present: normal lung sounds bilaterally. Absent: respiratory distress, wheezes, rales, rhonchi, stridor Cardiovascular Exam: Present: regular rate, normal rhythm, normal heart sounds. Absent: systolic murmur, diastolic murmur, rubs, gallop, clicks GI/Abdominal exam: Present: soft, normal bowel sounds. Absent: distended, tenderness, guarding, rebound, rigid External exam: Present: normal external exam Speculum exam: Present: cervical discharge (White, thin), other (No cervical erythema or friability). Absent: normal speculum exam By manual exam: Present: normal by manual exam. Absent: cervical motion tenderness, adnexal tenderness, adnexal mass, uterine tenderness Back exam: Present: normal inspection. Absent: CVA tenderness (R), CVA tenderness (L) Neurological exam: Present: alert, oriented X3, CN II-XII intact Psychiatric exam: Present: normal affect, normal mood Skin exam: Present: warm, dry, intact, normal color. Absent: rash Course Vital Signs 10/31/18 10/31/18 10/31/18 18:36 21:00 22:39 Temperature 97.9 F 97 F L Pulse Rate 73 70 70 Respiratory 16 18 18 Rate Blood Pressure 109/70 111/72 123/75 O2 Sat by Pulse 100 97 97 Oximetry Medical Decision Making - Medical Decision Making 23-year-old female patient percents to the emergency department today for complaints of pelvic pain and vaginal discharge been present for the last urinated. Physical examination did reveal right lower and left lower quadrant tenderness. Suprapubic tenderness. Vaginal exam did reveal a thin white frothy discharge, there is no cervical erythema, cervical motion tenderness, or adnexal tenderness. Ultrasound was obtained and showed no acute abnormalities. I did discuss findings and results with the patient. She does have a history of gonorrhea and with the discharge and pelvic pain I will treat for cervicitis and bacterial vaginosis. Cultures were sent. With no cervical motion tenderness, normal white blood cell count, and no fever there is low suspicion for pelvic inflammatory disease. 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 Return parameters were discussed in detail. She verbalizes understanding and agrees with this plan. - Lab Data Result diagrams: 10/31/18 19:19 10/31/18 19:19 Lab Results 10/31/18 10/31/18 10/31/18 Range/Units 19:19 19:19 19:19 WBC 7.8 (3.8-10.6) k/uL RBC 4.99 (3.80-5.40) m/uL Hgb 14.4 (11.4-16.0) gm/dL Hct 44.5 (34.0-46.0) % MCV 89.0 (80.0-100.0) fL MCH 28.9 (25.0-35.0) pg MCHC 32.4 (31.0-37.0) g/dL RDW 13.5 (11.5-15.5) % Plt Count 198 (150-450) k/uL Neutrophils % 51 % Lymphocytes % 39 % Monocytes % 6 % Eosinophils % 2 % Basophils % 1 % Neutrophils # 4.0 (1.3-7.7) k/uL Lymphocytes # 3.1 (1.0-4.8) k/uL Monocytes # 0.5 (0-1.0) k/uL Eosinophils # 0.1 (0-0.7) k/uL Basophils # 0.0 (0-0.2) k/uL Sodium 141 (137-145) mmol/L Potassium 4.1 (3.5-5.1) mmol/L Chloride 105 (98-107) mmol/L Carbon Dioxide 28 (22-30) mmol/L Anion Gap 8 mmol/L BUN 13 (7-17) mg/dL Creatinine 0.61 (0.52-1.04) mg/dL Est GFR (CKD-EPI)AfAm >90 (>60 ml/min/1.73 sqM) Est GFR (CKD-EPI)NonAf >90 (>60 ml/min/1.73 sqM) Glucose 91 (74-99) mg/dL Calcium 9.7 (8.4-10.2) mg/dL Total Bilirubin 0.2 (0.2-1.3) mg/dL AST 21 (14-36) U/L ALT 28 (9-52) U/L Alkaline Phosphatase 54 (38-126) U/L Total Protein 6.8 (6.3-8.2) g/dL Albumin 4.1 (3.5-5.0) g/dL Urine Color Yellow Urine Appearance Cloudy H (Clear) Urine pH 6.0 (5.0-8.0) Ur Specific [place] 1.025 (1.001-1.035) Urine Protein Trace H (Negative) Urine Glucose (UA) Negative (Negative) Urine Ketones Negative (Negative) Urine Blood Negative (Negative) Urine Nitrite Negative (Negative) Urine Bilirubin Negative (Negative) Urine Urobilinogen <2.0 (<2.0) mg/dL Ur Leukocyte Esterase Negative (Negative) Urine RBC 2 (0-5) /hpf Urine WBC 1 (0-5) /hpf Ur Squamous Epith Cells 8 H (0-4) /hpf Urine Mucus Few H (None) /hpf Trichomonas Ag (Rapid) (Negative) 10/31/18 Range/Units 20:03 WBC (3.8-10.6) k/uL RBC (3.80-5.40) m/uL Hgb (11.4-16.0) gm/dL Hct (34.0-46.0) % MCV (80.0-100.0) fL MCH (25.0-35.0) pg MCHC (31.0-37.0) g/dL RDW (11.5-15.5) % Plt Count (150-450) k/uL Neutrophils % % Lymphocytes % % Monocytes % % Eosinophils % % Basophils % % Neutrophils # (1.3-7.7) k/uL Lymphocytes # (1.0-4.8) k/uL Monocytes # (0-1.0) k/uL Eosinophils # (0-0.7) k/uL Basophils # (0-0.2) k/uL Sodium (137-145) mmol/L Potassium (3.5-5.1) mmol/L Chloride (98-107) mmol/L Carbon Dioxide (22-30) mmol/L Anion Gap mmol/L BUN (7-17) mg/dL Creatinine (0.52-1.04) mg/dL Est GFR (CKD-EPI)AfAm (>60 ml/min/1.73 sqM) Est GFR (CKD-EPI)NonAf (>60 ml/min/1.73 sqM) Glucose (74-99) mg/dL Calcium (8.4-10.2) mg/dL Total Bilirubin (0.2-1.3) mg/dL AST (14-36) U/L ALT (9-52) U/L Alkaline Phosphatase (38-126) U/L Total Protein (6.3-8.2) g/dL Albumin (3.5-5.0) g/dL Urine Color Urine Appearance (Clear) Urine pH (5.0-8.0) Ur Specific [place] (1.001-1.035) Urine Protein (Negative) Urine Glucose (UA) (Negative) Urine Ketones (Negative) Urine Blood (Negative) Urine Nitrite (Negative) Urine Bilirubin (Negative) Urine Urobilinogen (<2.0) mg/dL Ur Leukocyte Esterase (Negative) Urine RBC (0-5) /hpf Urine WBC (0-5) /hpf Ur Squamous Epith Cells (0-4) /hpf Urine Mucus (None) /hpf Trichomonas Ag (Rapid) Negative (Negative) - Radiology Data Radiology results: report reviewed Transvaginal ultrasound was obtained, report was reviewed in its entirety. Impression by Dr. April Ernst shows no acute process. Disposition Clinical Impression: Cervicitis, Pelvic pain Disposition: HOME SELF-CARE Condition: Good Instructions: Cervicitis (ED), Pelvic Pain in Women (ED) Additional Instructions: Take medications as directed. Follow-up through primary care physician for recheck as soon as possible. Follow-up with gynecology for recheck as soon as possible. Return immediately for any new, worsening, or concerning symptoms. Prescriptions: metroNIDAZOLE [Flagyl] 500 mg PO BID #14 tab Is patient prescribed a controlled substance at d/c from ED?: No Referrals: Kaushik Chun MD [Primary Care Provider] - 1-2 days Radha Garcia DO [Doctor of Osteopathic Medicine] - 1-2 days Time of Disposition: 22:21
--- NOTE | 2018-10-31 21:07 | US ---
EXAMINATION TYPE: US transvaginal DATE OF EXAM: 10/31/2018 COMPARISON: NONE CLINICAL HISTORY: Pain. Pain TECHNIQUE: Transvaginal (TV). Transabdominal sonographic images of the pelvis were acquired. Trans vaginal sonographic images were medically necessary to better assess the following anatomy: EXAM MEASUREMENTS: Uterus: 8.0 x 4.1 x 4.8 cm Endometrial Stripe: 0.4 cm Right Ovary: 2.7 x 1.4 x 2.0 cm Left Ovary: 3.4 x 1.6 x 1.7 cm 1. Uterus: Anteverted wnl 2. Endometrium: wnl 3. Right Ovary: wnl 4. Left Ovary: wnl Spectral, color and waveform doppler imaging shows good arterial and venous flow within the ovaries ; there is no evidence for ovarian torsion. 5. Bilateral Adnexa: wnl 6. Posterior cul-de-sac: wnl IMPRESSION: No acute process.
[2018-10-31 21:24] VITALS: PULSE 70; RESP 18
[2018-10-31] MEDS ORDERED: AZITHROMYCIN 500 MG TAB PO STA (22:13)
[2018-10-31] MEDS ORDERED: cefTRIAXone 250 MG VIAL IM STA (22:13)
[2018-10-31] MEDS ORDERED: metroNIDAZOLE 500 MG TAB PO STA (22:17)
[2018-10-31] MEDS ORDERED: ACET/COD 300 MG/30 MG STARTER PACK 6 TAB BTL PO STA (22:21)
[2018-10-31 22:41] VITALS: BP 123/75; TEMP 97
[2018-11-02 16:08] LABS: C. trachomatis,PCR Negative (Neg,Equiv); Chlamydia trachomatis Source Cervix; N. gonorrhoeae,PCR Negative (Neg,Equiv); Neisseria Source Cervix
== END 2018-10-31 22:41 | disposition home or self-care (01) ==
LOC: EC 18:23
DX: N72 Inflammatory disease of cervix uteri (principal); R10.2 Pelvic and perineal pain; R10.814 Left lower quadrant abdominal tenderness; R10.813 Right lower quadrant abdominal tenderness; Z87.891 Personal history of nicotine dependence; Z88.0 Allergy status to penicillin
CPT/HCPCS: 36415; 80053; 85025; 81001; 87808; 87491; 87591; 87070; 93975; 76830; 99284; 96374; 96372; J0696; J1885; 87205

== ENCOUNTER 2019-04-09 18:33 | Emergency (ER) | payer OTHER ==
[2019-04-09] MEDS ORDERED: SODIUM CHLORIDE 0.9% 1,000 ML IV ONE (18:44)
[2019-04-09 19:19] LABS: ALT 17 U/L (9-52); AST 19 U/L (14-36); Alkaline Phosphatase 40 U/L (38-126); Anion Gap 5 mmol/L; Blood Urea Nitrogen 9 mg/dL (7-17); Calcium 9.4 mg/dL (8.4-10.2); Carbon Dioxide 26 mmol/L (22-30); Chloride 108 mmol/L (98-107); Glucose 83 mg/dL (74-99); Sodium 139 mmol/L (137-145); Total Bilirubin 0.6 mg/dL (0.2-1.3); Total Protein 6.3 g/dL (6.3-8.2)
--- NOTE | 2019-04-09 19:19 | ED ---
General Adult HPI - General Chief complaint: Syncope Stated complaint: near syncope Time Seen by Provider: 04/09/19 18:33 Source: patient, RN notes reviewed Mode of arrival: EMS Limitations: no limitations - History of Present Illness Initial comments: This is a 23-year-old female presents emergency Department complaining of having a near syncopal episode. Patient states she went to donate plasma today and everything seemed to go okay. Patient states she got up went to the gym and started feeling lightheaded so she sat down and she continued to feel lightheaded so she got up and tried to walk out and then she felt she was given a passout and the boyfriend later down on the ground. Patient states she never did pass out but every time she stands have not she still feels lightheaded. Patient denies any chest pain palpitations difficulty breathing shortness of breath. Patient denies any recent fever chills or cough per patient denies abdominal pain patient denies nausea vomiting diarrhea. - Related Data Home Medications Medication Instructions Recorded Confirmed No Known Home Medications 04/09/19 04/09/19 Allergies Allergy/AdvReac Type Severity Reaction Status Date / Time Penicillins Allergy Intermediate Rash/Hives Verified 04/09/19 19:12 Review of Systems ROS Statement: Those systems with pertinent positive or pertinent negative responses have been documented in the HPI. ROS Other: All systems not noted in ROS Statement are negative. Past Medical History Past Medical History: No Reported History Additional Past Medical History / Comment(s): back pain History of Any Multi-Drug Resistant Organisms: None Reported Past Surgical History: Orthopedic Surgery Past Anesthesia/Blood Transfusion Reactions: No Reported Reaction Past Psychological History: Anxiety, Depression Smoking Status: Current every day smoker Past Alcohol Use History: None Reported Past Drug Use History: None Reported - Past Family History Mother Family Medical History: No Reported History General Exam - General Exam Comments Initial Comments: GENERAL: Patient is well-developed and well-nourished. Patient is nontoxic and well- hydrated and is in mild distress. ENT: Neck is soft and supple. No significant lymphadenopathy is noted. Oropharynx is clear. Moist mucous membranes. Neck has full range of motion without eliciting any pain. EYES: The sclera were anicteric and conjunctiva were pink and moist. Extraocular movements were intact and pupils were equal round and reactive to light. Eyelids were unremarkable. PULMONARY: Unlabored respirations. Good breath sounds bilaterally. No audible rales rhonchi or wheezing was noted. CARDIOVASCULAR: There is a regular rate and rhythm without any murmurs gallops or rubs. ABDOMEN: Soft and nontender with normal bowel sounds. No palpable organomegaly was noted. There is no palpable pulsatile mass. SKIN: Skin is clear with no lesions or rashes and otherwise unremarkable. NEUROLOGIC: Patient is alert and oriented x3. Cranial nerves II through XII are grossly intact. Motor and sensory are also intact. Normal speech, volume and content. Symmetrical smile. MUSCULOSKELETAL: Normal extremities with adequate strength and full range of motion. No lower extremity swelling or edema. No calf tenderness. LYMPHATICS: No significant lymphadenopathy is noted PSYCHIATRIC: Normal psychiatric evaluation. N Limitations: no limitations Course Vital Signs 04/09/19 04/09/19 18:45 18:50 Temperature 98.7 F Pulse Rate 67 Pulse Rate [ 134 H Sitting] Pulse Rate [ 108 H Standing] Pulse Rate [ 86 Supine] Respiratory 18 Rate Blood Pressure 119/77 Blood Pressure 134/87 [Sitting] Blood Pressure 119/99 [Standing] Blood Pressure 119/84 [Supine] O2 Sat by Pulse 98 Oximetry Medical Decision Making - Medical Decision Making EKG shows a normal sinus rhythm at 80 bpm TX interval 238 QRS is 78 QT interval 374 QTC is 431. Patient's EKG shows no ST segment elevation or depression or T wave abnormalities are noted. Patient received fluids in the emergency department was feeling considerably better. - Lab Data Result diagrams: 04/09/19 19:04 04/09/19 19:04 Lab Results 04/09/19 04/09/19 Range/Units 19:04 19:04 WBC 6.6 (3.8-10.6) k/uL RBC 5.11 (3.80-5.40) m/uL Hgb 15.0 (11.4-16.0) gm/dL Hct 45.6 (34.0-46.0) % MCV 89.2 (80.0-100.0) fL MCH 29.4 (25.0-35.0) pg MCHC 32.9 (31.0-37.0) g/dL RDW 13.0 (11.5-15.5) % Plt Count 187 (150-450) k/uL Neutrophils % 58 % Lymphocytes % 34 % Monocytes % 5 % Eosinophils % 1 % Basophils % 1 % Neutrophils # 3.8 (1.3-7.7) k/uL Lymphocytes # 2.2 (1.0-4.8) k/uL Monocytes # 0.3 (0-1.0) k/uL Eosinophils # 0.1 (0-0.7) k/uL Basophils # 0.1 (0-0.2) k/uL Sodium 139 (137-145) mmol/L Potassium 4.0 (3.5-5.1) mmol/L Chloride 108 H (98-107) mmol/L Carbon Dioxide 26 (22-30) mmol/L Anion Gap 5 mmol/L BUN 9 (7-17) mg/dL Creatinine 0.60 (0.52-1.04) mg/dL Est GFR (CKD-EPI)AfAm >90 (>60 ml/min/1.73 sqM) Est GFR (CKD-EPI)NonAf >90 (>60 ml/min/1.73 sqM) Glucose 83 (74-99) mg/dL Calcium 9.4 (8.4-10.2) mg/dL Total Bilirubin 0.6 (0.2-1.3) mg/dL AST 19 (14-36) U/L ALT 17 (9-52) U/L Alkaline Phosphatase 40 (38-126) U/L Total Protein 6.3 (6.3-8.2) g/dL Albumin 4.0 (3.5-5.0) g/dL Disposition Clinical Impression: Orthostatic hypotension Disposition: HOME SELF-CARE Condition: Good Is patient prescribed a controlled substance at d/c from ED?: No Referrals: Kaushik Chun MD [Primary Care Provider] - 1-2 days Time of Disposition: 20:00
[2019-04-09 19:22] LABS: Basophils # (A) 0.1 k/uL (0-0.2); Basophils % (A) 1 %; Eosinophils # (A) 0.1 k/uL (0-0.7); Eosinophils % (A) 1 %; HCT 45.6 % (34.0-46.0); Lymphocytes # (A) 2.2 k/uL (1.0-4.8); Lymphocytes % (A) 34 %; MCH 29.4 pg (25.0-35.0); MCHC 32.9 g/dL (31.0-37.0); MCV 89.2 fL (80.0-100.0); Mean Platelet Volume 7.9; Monocytes # (A) 0.3 k/uL (0-1.0); Monocytes % (A) 5 %; Neutrophils # (A) 3.8 k/uL (1.3-7.7); Neutrophils % (A) 58 %; Platelet Count 187 k/uL (150-450); RBC 5.11 m/uL (3.80-5.40); WBC 6.6 k/uL (3.8-10.6)
[2019-04-09 20:18] VITALS: RESP 16
[2019-04-09 20:19] VITALS: BP 115/80; PULSE 79
[2019-04-09 20:44] VITALS: TEMP 98
== END 2019-04-09 20:43 | disposition home or self-care (01) ==
LOC: EC 18:33
DX: I95.1 Orthostatic hypotension (principal); F17.200 Nicotine dependence, unspecified, uncomplicated; Z88.0 Allergy status to penicillin
CPT/HCPCS: 36415; 80053; 85025; 93005; 96360; 99284

== ENCOUNTER → 2019-07-18 | Outpatient (CLI) | payer OTHER ==
--- NOTE | 2019-07-19 11:18 | US ---
EXAMINATION TYPE: Transabdominal DATE OF EXAM: 07/18/2019 4:51 PM COMPARISON: NONE CLINICAL HISTORY: Z36 CONFIRM DATES. Unknown dates EXAM PERFORMED: Transabdominal (TA) EXAM MEASUREMENTS: GESTATIONAL AGE / DATING Physician Established: Not yet established Dates by LMP: Does not correlate Dates by First Scan: No previous this is first scan Dates by Current Scan for: (12 weeks/1 days) EDC: 01/29/2020 MATERNAL ANATOMY Uterus: 13.1 x 7.3 x 9.0 cm Right Ovary: 3.2 x 2.0 x 1.9 cm Left Ovary: 3.2 x 2.4 x 2.5 cm Post CDS / Adnexa: wnl Presence of free fluid: No Presence of corpus luteal cyst: No Presence of subchorionic bleed: Yes, measuring 1.4 x 0.4 x 0.7 cm GESTATION / SURVEY CRL: 5.5 cm (12 weeks/1 days) Heart Rate: 158 bpm Rhythm: Normal IUP: Viable IUP Date of LMP: 03/31/2019 Beta HcG (if available): Not available at this time Viable IUP measuring 12wks/1day with an BOO 01/29/2020. IMPRESSION: Single intrauterine gestation estimated at 12 weeks 1 day gestation based on crown-rump length. Cardi ac activity measures 150 bpm. 2. A subchorionic hemorrhage is likely present. This measures 1.4 x 0.4 x 0.7 cm.
== END | disposition home or self-care (01) ==
LOC: RADUSWWP 16:12
PROVIDERS: ATTEND Obstetrics & Gynecology
DX: Z36.9 Encounter for antenatal screening, unspecified (principal); Z88.0 Allergy status to penicillin
CPT/HCPCS: 76801

== ENCOUNTER 2019-09-17 16:12 | Emergency (ER) | payer OTHER ==
[2019-09-17] MEDS ORDERED: SODIUM CHLORIDE 0.9% 1,000 ML IV STA (16:27)
[2019-09-17] MEDS ORDERED: ACETAMINOPHEN TAB 500 MG TAB PO STA (16:52)
[2019-09-17 16:55] LABS: Basophils # (A) 0.1 k/uL (0-0.2); Basophils % (A) 1 %; Eosinophils # (A) 0.1 k/uL (0-0.7); Eosinophils % (A) 1 %; HCT 35.6 % (34.0-46.0); HGB 11.6 gm/dL (11.4-16.0); Lymphocytes # (A) 0.5 k/uL (1.0-4.8); Lymphocytes % (A) 6 %; MCH 29.6 pg (25.0-35.0); MCHC 32.6 g/dL (31.0-37.0); MCV 90.7 fL (80.0-100.0); Monocytes # (A) 0.2 k/uL (0-1.0); Monocytes % (A) 3 %; Neutrophils # (A) 8.2 k/uL (1.3-7.7); Neutrophils % (A) 89 %; Platelet Count 161 k/uL (150-450); RBC 3.93 m/uL (3.80-5.40); RDW 12.8 % (11.5-15.5); WBC 9.2 k/uL (3.8-10.6)
[2019-09-17 16:59] LABS: Appearance,Urine Cloudy (Clear); Bacteria,Urine Occasional /hpf; Bilirubin,Urine Negative (Negative); Blood,Urine Negative (Negative); Color,Urine Light Yellow; Glucose,Urine (UA) Negative (Negative); Ketones,Urine Trace (Negative); Leukocyte Esterase,Urine Negative (Negative); Mucus,Urine Rare /hpf; Nitrite,Urine Negative (Negative); Protein,Urine Negative (Negative); RBC,Urine 1 /hpf (0-5); Specific Gravity,Urine 1.004 (1.001-1.035); Squamous Epithelial Cell,Urine 6 /hpf (0-4); Urobilinogen,Urine <2.0 mg/dL (<2.0); WBC,Urine 2 /hpf (0-5)
[2019-09-17 17:26] LABS: ALT 22 U/L (9-52); AST 21 U/L (14-36); African American GFR (CKD) >90 (>60 ml/min/1.73 sqM); Albumin 3.7 g/dL (3.5-5.0); Alkaline Phosphatase 58 U/L (38-126); Amylase 54 U/L (30-110); Anion Gap 10 mmol/L; Blood Urea Nitrogen 3 mg/dL (7-17); Calcium 9.3 mg/dL (8.4-10.2); Carbon Dioxide 20 mmol/L (22-30); Chloride 105 mmol/L (98-107); Glucose 81 mg/dL (74-99); Potassium 3.8 mmol/L (3.5-5.1); Sodium 135 mmol/L (137-145); Total Bilirubin 0.3 mg/dL (0.2-1.3); Total Protein 6.7 g/dL (6.3-8.2)
--- NOTE | 2019-09-17 17:38 | ED ---
Abdominal Pain HPI <Abhishek Foreman - Last Filed: 09/17/19 18:57> - General Source: patient, RN notes reviewed, old records reviewed Mode of arrival: ambulatory Limitations: no limitations - History of Present Illness MD Complaint: abdominal pain (Left lower quadrant) -: hour(s), days(s) Location: LLQ Radiation: LLQ Migration to: suprapubic Severity: moderate Severity scale (1-10): 4 Quality: cramping Consistency: constant Improves With: nothing Worsens With: nothing Associated Symptoms: nausea, vomiting <Benjamin Wilkes - Last Filed: 09/17/19 21:41> - General Chief Complaint: Abdominal Pain Stated Complaint: pain Time Seen by Provider: 09/17/19 16:27 - History of Present Illness Initial Comments: This is a 23-year-old female the ER for evaluation. Patient resents today for evaluation regards to abdominal pain left lower quadrant bowel pain fever. Some difficulty with urination feels like she is having difficulty controlling ER and urinating increasingly more. Otherwise no nausea no vomiting no rashes denies vaginal bleeding or loss of fluids, no vaginal discharge. No diarrhea. Patient does have left-sided abdominal tenderness (Benjamin Wilkes) - Related Data Home Medications Medication Instructions Recorded Confirmed [id number] Acid 1 cap PO DAILY 09/17/19 09/17/19 [-U Capsule (formulary)] Allergies Allergy/AdvReac Type Severity Reaction Status Date / Time Penicillins Allergy Intermediate Rash/Hives Verified 09/17/19 17:04 Review of Systems ROS Other: All systems not noted in ROS Statement are negative. <Abhishek Foreman - Last Filed: 09/17/19 18:57> ROS Other: All systems not noted in ROS Statement are negative. <Benjamin Wilkes - Last Filed: 09/17/19 21:41> ROS Statement: Those systems with pertinent positive or pertinent negative responses have been documented in the HPI. Past Medical History Past Medical History: No Reported History Additional Past Medical History / Comment(s): back pain History of Any Multi-Drug Resistant Organisms: None Reported Past Surgical History: Orthopedic Surgery Past Anesthesia/Blood Transfusion Reactions: No Reported Reaction Past Psychological History: Anxiety, Depression Smoking Status: Current every day smoker Past Alcohol Use History: None Reported Past Drug Use History: None Reported - Past Family History Mother Family Medical History: No Reported History <Benjamin Wilkes - Last Filed: 09/17/19 21:41> General Exam External exam: Present: normal external exam. Absent: erythema, swelling, lesions, lacerations, ecchymosis, other Speculum exam: Present: vaginal discharge (patient had mild white discharge, ). Absent: normal speculum exam, erythema, cervical discharge, vaginal bleeding, foreign body, tissue, laceration By manual exam: Present: normal by manual exam. Absent: cervical motion tenderness, adnexal tenderness, adnexal mass, uterine enlargement, uterine tenderness <Abhishek Foreman - Last Filed: 09/17/19 18:57> Limitations: no limitations General appearance: alert, in no apparent distress Head exam: Present: atraumatic, normocephalic, normal inspection Eye exam: Present: normal appearance, PERRL, EOMI. Absent: scleral icterus, conjunctival injection, periorbital swelling ENT exam: Present: normal exam, mucous membranes moist Neck exam: Present: normal inspection. Absent: tenderness, meningismus, lymphadenopathy Respiratory exam: Present: normal lung sounds bilaterally. Absent: respiratory distress, wheezes, rales, rhonchi, stridor Cardiovascular Exam: Present: normal rhythm, tachycardia, normal heart sounds. Absent: systolic murmur, diastolic murmur, rubs, gallop, clicks GI/Abdominal exam: Present: soft, tenderness (LLQ), normal bowel sounds. Ab sent: distended, guarding, rebound, rigid Extremities exam: Present: normal inspection, full ROM, normal capillary refill. Absent: tenderness, pedal edema, joint swelling, calf tenderness Back exam: Present: normal inspection Neurological exam: Present: alert, oriented X3, CN II-XII intact Psychiatric exam: Present: normal affect, normal mood Skin exam: Present: warm, dry, intact, normal color. Absent: rash <Benjamin Wilkes - Last Filed: 09/17/19 21:41> Course <Benjamin Wilkes - Last Filed: 09/17/19 21:41> Vital Signs 09/17/19 09/17/19 09/17/19 16:21 16:46 17:55 Temperature 100.8 F H 100.9 F H 99.1 F Pulse Rate 119 H 95 Respiratory 22 16 Rate Blood Pressure 124/74 O2 Sat by Pulse 99 99 Oximetry 09/17/19 21:30 Temperature 100.1 F H Pulse Rate 113 H Respiratory 20 Rate Blood Pressure 96/52 O2 Sat by Pulse 98 Oximetry - Reevaluation(s) Reevaluation #1: 09/17/19 21:39 Medical record is reviewed (Benjamin Wilkes) Reevaluation #2: 09/17/19 21:39 Garibay are improved with fever control (Benjamin Wilkes) Reevaluation #3: 09/17/19 21:39 patient at length regarding possibilities including appendicitis with a flipped appendix she understands and will return if symptoms persist (Benjamin Wilkes) Medical Decision Making - Lab Data Result diagrams: 09/17/19 16:37 09/17/19 16:37 <Abhishek Foreman - Last Filed: 09/17/19 18:57> - Lab Data Result diagrams: 09/17/19 16:37 09/17/19 16:37 - Radiology Data Radiology results: report reviewed (Ultrasound left lower quadrant negative for any abscess heart tones positive), image reviewed <Benjamin Wilkes - Last Filed: 09/17/19 21:41> - Medical Decision Making 23 female the ER for evaluation patient presented to evaluation for abdominal pain and with positive fever. No diarrhea mildly nauseous no vomiting. She does have a fever. There is unremarkable we did ultrasound which is negative currently. Patient encouraged to return to ER for possible evaluation of infection, urine is currently negative cultures pending (Benjamin Wilkes) - Lab Data Lab Results 09/17/19 09/17/19 09/17/19 Range/Units 16:37 16:37 16:37 WBC 9.2 (3.8-10.6) k/uL RBC 3.93 (3.80-5.40) m/uL Hgb 11.6 (11.4-16.0) gm/dL Hct 35.6 (34.0-46.0) % MCV 90.7 (80.0-100.0) fL MCH 29.6 (25.0-35.0) pg MCHC 32.6 (31.0-37.0) g/dL RDW 12.8 (11.5-15.5) % Plt Count 161 (150-450) k/uL Neutrophils % 89 % Lymphocytes % 6 % Monocytes % 3 % Eosinophils % 1 % Basophils % 1 % Neutrophils # 8.2 H (1.3-7.7) k/uL Lymphocytes # 0.5 L (1.0-4.8) k/uL Monocytes # 0.2 (0-1.0) k/uL Eosinophils # 0.1 (0-0.7) k/uL Basophils # 0.1 (0-0.2) k/uL Sodium 135 L (137-145) mmol/L Potassium 3.8 (3.5-5.1) mmol/L Chloride 105 (98-107) mmol/L Carbon Dioxide 20 L (22-30) mmol/L Anion Gap 10 mmol/L BUN 3 L (7-17) mg/dL Creatinine 0.39 L (0.52-1.04) mg/dL Est GFR (CKD-EPI)AfAm >90 (>60 ml/min/1.73 sqM) Est GFR (CKD-EPI)NonAf >90 (>60 ml/min/1.73 sqM) Glucose 81 (74-99) mg/dL Calcium 9.3 (8.4-10.2) mg/dL Total Bilirubin 0.3 (0.2-1.3) mg/dL AST 21 (14-36) U/L ALT 22 (9-52) U/L Alkaline Phosphatase 58 (38-126) U/L C-Reactive Protein (<10.0) mg/L Total Protein 6.7 (6.3-8.2) g/dL Albumin 3.7 (3.5-5.0) g/dL Amylase 54 (30-110) U/L Lipase 69 (23-300) U/L Urine Color Light Yellow Urine Appearance Cloudy H (Clear) Urine pH 6.0 (5.0-8.0) Ur Specific Vance 1.004 (1.001-1.035) Urine Protein Negative (Negative) Urine Glucose (UA) Negative (Negative) Urine Ketones Trace H (Negative) Urine Blood Negative (Negative) Urine Nitrite Negative (Negative) Urine Bilirubin Negative (Negative) Urine Urobilinogen <2.0 (<2.0) mg/dL Ur Leukocyte Esterase Negative (Negative) Urine RBC 1 (0-5) /hpf Urine WBC 2 (0-5) /hpf Ur Squamous Epith Cells 6 H (0-4) /hpf Urine Bacteria Occasional H (None) /hpf Urine Mucus Rare H (None) /hpf Influenza Type A RNA (Not Detectd) Influenza Type B (PCR) (Not Detectd) Trichomonas Ag (Rapid) (Negative) 09/17/19 09/17/19 09/17/19 Range/Units 16:37 18:27 19:00 WBC (3.8-10.6) k/uL RBC (3.80-5.40) m/uL Hgb (11.4-16.0) gm/dL Hct (34.0-46.0) % MCV (80.0-100.0) fL MCH (25.0-35.0) pg MCHC (31.0-37.0) g/dL RDW (11.5-15.5) % Plt Count (150-450) k/uL Neutrophils % % Lymphocytes % % Monocytes % % Eosinophils % % Basophils % % Neutrophils # (1.3-7.7) k/uL Lymphocytes # (1.0-4.8) k/uL Monocytes # (0-1.0) k/uL Eosinophils # (0-0.7) k/uL Basophils # (0-0.2) k/uL Sodium (137-145) mmol/L Potassium (3.5-5.1) mmol/L Chloride (98-107) mmol/L Carbon Dioxide (22-30) mmol/L Anion Gap mmol/L BUN (7-17) mg/dL Creatinine (0.52-1.04) mg/dL Est GFR (CKD-EPI)AfAm (>60 ml/min/1.73 sqM) Est GFR (CKD-EPI)NonAf (>60 ml/min/1.73 sqM) Glucose (74-99) mg/dL Calcium (8.4-10.2) mg/dL Total Bilirubin (0.2-1.3) mg/dL AST (14-36) U/L ALT (9-52) U/L Alkaline Phosphatase (38-126) U/L C-Reactive Protein 14.8 H (<10.0) mg/L Total Protein (6.3-8.2) g/dL Albumin (3.5-5.0) g/dL Amylase (30-110) U/L Lipase (23-300) U/L Urine Color Urine Appearance (Clear) Urine pH (5.0-8.0) Ur Specific Vance (1.001-1.035) Urine Protein (Negative) Urine Glucose (UA) (Negative) Urine Ketones (Negative) Urine Blood (Negative) Urine Nitrite (Negative) Urine Bilirubin (Negative) Urine Urobilinogen (<2.0) mg/dL Ur Leukocyte Esterase (Negative) Urine RBC (0-5) /hpf Urine WBC (0-5) /hpf Ur Squamous Epith Cells (0-4) /hpf Urine Bacteria (None) /hpf Urine Mucus (None) /hpf Influenza Type A RNA Not Detected (Not Detectd) Influenza Type B (PCR) Not Detected (Not Detectd) Trichomonas Ag (Rapid) Negative (Negative) Disposition <Abhishek Foreman P - Last Filed: 09/17/19 18:57> Is patient prescribed a controlled substance at d/c from ED?: No <Benjamin Wilkes - Last Filed: 09/17/19 21:41> Clinical Impression: Abdominal pain, Fever Disposition: HOME SELF-CARE Condition: Fair Instructions (If sedation given, give patient instructions): Fever in Adults (ED), Abdominal Pain in (ED) Referrals: Kaushik Chun MD [Primary Care Provider] - 1-2 days
--- NOTE | 2019-09-17 20:54 | US ---
EXAMINATION TYPE: US OB limited DATE OF EXAM: 09/17/2019 COMPARISON: US CLINICAL HISTORY: pain. Pelvic pain x 9 hours. G 5 P1 A 3. EXAM PERFORMED: Transabdominal (TA) GESTATIONAL AGE / DATING Physician Established: (20 weeks/6 days) EDC: 01/29/2020 No growth performed on today?s study per ordering physician SURVEY HEART RATE: 163 bpm RHYTHM: Normal Evaluate ovaries, R/O abscess. No pulsed wave Doppler performed per physician. Patient feels pain t oward left side of pelvis. Right ovary: 3.0 x 1.6 x 1.7 cm. Left ovary: 4.0 x 2.5 x 1.8 cm. Appears slightly enlarged? *Limitations due to depth. IMPRESSION: This limited exam shows no evidence of ovarian mass. There is no free fluid in the pelvi s. The heart rate is 163. Fetus was not evaluated otherwise.
[2019-09-17 21:32] VITALS: BP 96/52; PULSE 113; RESP 20; TEMP 100.1
[2019-09-17] MEDS ORDERED: ACETAMINOPHEN TAB 325 MG TAB PO STA (21:38)
[2019-09-18 15:55] LABS: C. trachomatis,PCR Negative (Neg,Equiv); Chlamydia trachomatis Source Urine
[2019-09-18 16:04] LABS: N. gonorrhoeae,PCR Negative (Neg,Equiv); Neisseria Source Urine
== END 2019-09-17 21:51 | disposition home or self-care (01) ==
LOC: EC 16:12
DX: O26.891 Other specified pregnancy related conditions, first trimester (principal); R10.32 Left lower quadrant pain; O99.89 Other specified diseases and conditions complicating pregnancy, childbirth and the puerperium; R50.9 Fever, unspecified; O99.330 Smoking (tobacco) complicating pregnancy, unspecified trimester; F17.200 Nicotine dependence, unspecified, uncomplicated; Z3A.00 Weeks of gestation of pregnancy not specified; Z88.0 Allergy status to penicillin
CPT/HCPCS: 36415; 76815; 80053; 81001; 82150; 83690; 85025; 86140; 87491; 87502; 87591; 87808; 96360; 96361; 99284

== ENCOUNTER → 2019-10-29 | Outpatient (CLI) | payer OTHER ==
[2019-10-29 14:21] LABS: HCT 33.9 % (34.0-46.0); HGB 10.9 gm/dL (11.4-16.0); MCH 29.2 pg (25.0-35.0); MCHC 32.2 g/dL (31.0-37.0); MCV 90.5 fL (80.0-100.0); Mean Platelet Volume 7.7; Platelet Count 194 k/uL (150-450); RBC 3.74 m/uL (3.80-5.40); RDW 12.7 % (11.5-15.5); WBC 10.9 k/uL (3.8-10.6)
== END | disposition home or self-care (01) ==
LOC: LABWHC1 12:38
PROVIDERS: ATTEND Obstetrics & Gynecology
DX: Z34.82 Encounter for supervision of other normal pregnancy, second trimester (principal); Z3A.00 Weeks of gestation of pregnancy not specified
CPT/HCPCS: 36415; 82950; 85027

== ENCOUNTER → 2019-11-10 | Outpatient (CLI) | payer OTHER ==
--- NOTE | 2019-11-11 10:06 | US ---
EXAMINATION TYPE: US OB anatomy transabd DATE OF EXAM: 11/10/2019 COMPARISON: NONE HISTORY: Z36 Confirm dates Follow up prior abnormal, EIF TECHNIQUE: Transabdominal (TA) EXAM MEASUREMENTS: GESTATIONAL AGE / DATING Physician Established: (28 weeks/4 days) EDC: 01/29/20 Dates by LMP: unknown Dates by First Scan: (28 weeks/4 days) EDC: 01/29/20 Dates by Current Scan for: (29 weeks/5 days) EDC: 01/21/20 SURVEY IUP: Single PLACENTA: Anterior PREVIA: No previa DEVANG: 16.9 cm Normal CERVICAL LENGTH (transabdominal: norm > 3.0cm): 4.2 cm BIOMETRY PRESENTATION: Vertex LIE: Longitudinal BPD: 7.6 cm 30 weeks / 4 days HC: 28.1 cm 30 weeks / 6 days AC: 24.0 cm 28 weeks / 2 days FL: 5.4 cm 28 weeks / 5 days ESTIMATED WEIGHT IN GRAMS: 1281 grams ESTIMATED WEIGHT IN LBS/OZ: 2 lbs. 13 oz. WEIGHT PERCENTAGE BASED ON ESTABLISHED DATE: 44 % HC/AC: 1.17 Normal FL/AC: 23% Normal HEART RATE: 140 bpm RHYTHM: Normal ANATOMY SEEN (within normal limits): * Lateral Vent (< 1 cm) 0.8 cm * Cisterna Magna (< 1.1 cm) 0.5 cm * Cerebellum (varies with age) 3.3 cm Choroid Plexus (bilateral) Midline Falx Cavus Septi Pellucidi Four Chamber Heart Outflow tracts: LVOT/RVOT Stomach Situs Nose / Lips Diaphragm Bladder Cord Insert Three Vessel Cord Longitudinal Spine Transverse Spine ANATOMY NOT SEEN: due to movement and position Kidneys (bilateral) Arms (bilateral) Legs (bilateral) IMPRESSION: Single live intrauterine with a sonographic age of 29 weeks and 5 days and vinnie mated date of delivery of 01/21/2020. Anatomy seen is within normal limits however due to moveme nt in position the kidneys, arms, legs were not well visualized. The patient will return for addition al imaging.
== END | disposition home or self-care (01) ==
LOC: RADUSWWP 15:58
PROVIDERS: ATTEND Obstetrics & Gynecology
DX: Z36.89 Encounter for other specified antenatal screening (principal); Z3A.29 29 weeks gestation of pregnancy
CPT/HCPCS: 76811

== ENCOUNTER 2019-12-19 17:03 | Outpatient (CLI) | payer OTHER | END 2019-12-19 17:55 | disposition home or self-care (01) | LOC: FBPOP 17:03 | PROVIDERS: ATTEND Obstetrics & Gynecology | DX: O36.8190 Decreased fetal movements, unspecified trimester, not applicable or unspecified (principal); Z3A.00 Weeks of gestation of pregnancy not specified | CPT/HCPCS: 59025; G0463; 99213 ==

== ENCOUNTER 2019-12-29 22:22 | Outpatient (CLI) | payer OTHER ==
[2019-12-29 23:20] VITALS: BP 119/72; PULSE 104; RESP 16; TEMP 97.5
--- NOTE | 2019-12-31 13:34 | P.MSEPDOC ---
Presenting Problems - Arrival Data Date of Arrival on Unit: 12/29/19 Time of Arrival on Unit: 22:22 Mode of Transport: Ambulatory - Complaint OB-Reason for Admission/Chief Complaint: Decreased Movement Medical History - Information : 2 Para: 1 Term: 1 : 0 Abortions: Spontaneous or Elective: 0 Number of Living Children: 1 - Gestational Age Gestational Age by BOO (wks/days): 35 Weeks and 4 Days Review of Systems - Review of Systems Constitutional: No problems Breast: No problems ENT: No problems Cardiovascular: No problems Respiratory: No problems Gastrointestinal: No problems Genitourinary: No problems Musculoskeletal: No problems Neurological: No problems Skin: No problems Vital Signs - Temperature Temperature: 97.5 F Temperature Source: Temporal Artery Scan - Pulse Pulse Oximetery Pulse Rate: 104 Pulse Assessment Method: Pulse Oximetry - Respirations Respiratory Rate: 16 Oxygen Delivery Method: Room Air O2 Sat by Pulse Oximetry: 99 - Blood Pressure Right Arm Blood Pressure: 119/72 Blood Pressure Mean: 87 Blood Pressure Source: Automatic Cuff Medical Screen Scoring (Pre) - Cervical Exam Dilation: Exam Deferred Effacement: Exam Deferred Membranes: Intact - Uterine Contractions Frequency: N/A Duration: N/A Intensity: N/A - Maternal Vital Signs Maternal Temperature: N/A Maternal Blood Pressure: N/A Signs of Preeclampsia: N/A Maternal Respirations: N/A - Maternal Trauma Maternal Trauma: N/A - Assessment - Baby A Baseline FHR: 145 Heart Rate - NICHD Category: Category I (Normal) = 0 NST: Reactive Position: N/A Station: N/A - Total Score - Baby A Total Score - Baby A: 0 - Total Score - Baby B Total Score - Baby B: 0 - Total Score - Baby C Total Score - Baby C: 0 - Level of Risk - Baby A Level of Risk - Baby A: Low (0-5) - Level of Risk - Baby B Level of Risk - Baby B: Low (0-5) - Level of Risk - Baby C Level of Risk - Baby C: Low (0-5) Physician Notification (Pre) - Physician Notified Physician Notified Date: 12/29/19 Physician Notified Time: 23:09 New Order Received: Yes (discharge home) - Notification Comment Comment: Dr. Garcia called, report given on maternal and status, pt complains of. decreased movement for the past 2 days. NST is reactive, baby is extremely active. as heard audibly. Pt is starting to feel more movement at this time. Orders to discharge. pt home and discuss kick counts with her. Disposition - Disposition OB Disposition: Discharge to home Discharge Date: 12/29/19 Discharge Time: 23:13 I agree with the RN Medical Screening Exam: Yes Risk & Benefit of care provided described in d/c instruction: Yes Diagnosis: DECREASED MOVEMENTS, THIRD TRIMESTER, UNSP
== END 2019-12-29 23:17 | disposition home or self-care (01) ==
LOC: FBPOP 22:22
PROVIDERS: ATTEND Obstetrics & Gynecology
DX: O36.8130 Decreased fetal movements, third trimester, not applicable or unspecified (principal); Z3A.35 35 weeks gestation of pregnancy
CPT/HCPCS: 59025; G0463; 99213

== ENCOUNTER 2019-12-31 14:01 | Outpatient (CLI) | payer OTHER ==
--- NOTE | 2019-12-31 15:08 | US ---
EXAMINATION TYPE: US OB >= 14 wk fetus DATE OF EXAM: 12/31/2019 COMPARISON: 11/10/2019 CLINICAL HISTORY: Polyhydramnios Patient states she has > normal amniotic fluid. Patient is unsure of her due date. TECHNIQUE: Transabdominal (TA) GESTATIONAL AGE / DATING Physician Established: (36 weeks/5 days) EDC: 01/23/2020 Dates by Current Scan: (37 weeks/0 days) EDC: 01/21/2020 SURVEY IUP: Single PLACENTA: Anterior PREVIA: No Previa DEVANG: 15.4 cm Normal CERVICAL LENGTH (transabdominal: norm > 3.0cm): 3.2 cm BIOMETRY PRESENTATION: Vertex BPD: 9.0 cm 36 weeks / 3 days HC: 34 cm 39 weeks / 6 days AC: 32.1 cm 36 weeks / 1 days FL: 6.9 cm 35 weeks / 4 days ESTIMATED WEIGHT IN GRAMS: 2909 grams ESTIMATED WEIGHT IN LBS/OZ: 6 lbs. 7 oz. WEIGHT PERCENTAGE BASED ON ESTABLISHED DATES: 44% HC/AC: 1.1 Normal FL/AC: 22 Normal HEART RATE: 143 bpm RHYTHM: Normal IMPRESSION: Single live intrauterine with a sonographic age of 37 weeks and 0 days and estimated date o f delivery of 01/21/2020 and amniotic fluid index is within normal limits on this examination of 15.4 cm.
== END 2019-12-31 15:00 | disposition home or self-care (01) ==
LOC: FBPOP 14:01
PROVIDERS: ATTEND Obstetrics & Gynecology
DX: O40.3XX0 Polyhydramnios, third trimester, not applicable or unspecified (principal); Z3A.37 37 weeks gestation of pregnancy
CPT/HCPCS: 59025; 76805

== ENCOUNTER 2020-01-15 12:44 | Outpatient (CLI) | payer SELFPAY ==
[2020-01-15 13:58] VITALS: BP 119/78; PULSE 102; RESP 17; TEMP 98.2
[2020-01-15 14:49] LABS: Appearance,Urine Clear (Clear); Color,Urine Yellow; Glucose,Urine (UA) Negative (Negative); Protein,Urine Negative (Negative)
[2020-01-15 14:50] LABS: Bilirubin,Urine Negative (Negative); Blood,Urine Negative (Negative); Ketones,Urine Negative (Negative); Leukocyte Esterase,Urine Negative (Negative); Nitrite,Urine Negative (Negative); Urobilinogen,Urine <2.0 mg/dL (<2.0)
--- NOTE | 2020-01-22 14:55 | P.MSEPDOC ---
Presenting Problems - Arrival Data Date of Arrival on Unit: 01/15/20 Time of Arrival on Unit: 12:33 Mode of Transport: Wheelchair - Complaint OB-Reason for Admission/Chief Complaint: Other Comment: pt presents to triage with c/o lower back pain since last night that comes and. goes, + fm but unable to perform kick count last night, and pt reports passing mucous. plug, denies lof/vb, reports occ contractions that are not regular, abd soft and non. tender, denies complications with Medical History - Information : 5 Para: 1 Term: 1 : 0 Abortions: Spontaneous or Elective: 3 Number of Living Children: 1 - Gestational Age Gestational Age by BOO (wks/days): 38 Weeks and 6 Days Review of Systems - Review of Systems Constitutional: No problems Breast: No problems ENT: No problems Cardiovascular: No problems Respiratory: No problems Gastrointestinal: No problems Genitourinary: No problems Musculoskeletal: No problems Neurological: No problems Skin: No problems Vital Signs - Temperature Temperature: 98.2 F Temperature Source: Temporal Artery Scan - Pulse Right Brachial Pulse Rate: 102 Pulse Assessment Method: Automatic Cuff - Respirations Respiratory Rate: 17 Oxygen Delivery Method: Room Air O2 Sat by Pulse Oximetry: 99 - Blood Pressure Right Arm Blood Pressure: 119/78 Blood Pressure Mean: 91 Blood Pressure Source: Automatic Cuff Medical Screen Scoring (Pre) - Cervical Exam Dilation: 1-3 cm = 1 Effacement: Exam Deferred Membranes: Intact - Uterine Contractions Frequency: > 5 minutes apart = 1 Duration: > 40 seconds = 2 Intensity: N/A - Maternal Vital Signs Maternal Temperature: N/A Maternal Blood Pressure: N/A Signs of Preeclampsia: N/A Maternal Respirations: N/A - Maternal Trauma Maternal Trauma: N/A - Assessment - Baby A Baseline FHR: 135 Heart Rate - NICHD Category: Category I (Normal) = 0 NST: Reactive Position: N/A Station: N/A - Total Score - Baby A Total Score - Baby A: 4 - Total Score - Baby B Total Score - Baby B: 4 - Total Score - Baby C Total Score - Baby C: 4 - Level of Risk - Baby A Level of Risk - Baby A: Low (0-5) - Level of Risk - Baby B Level of Risk - Baby B: Low (0-5) - Level of Risk - Baby C Level of Risk - Baby C: Low (0-5) Physician Notification (Pre) - Physician Notified Physician Notified Date: 01/15/20 Physician Notified Time: 13:40 New Order Received: Yes (dc home) - Notification Comment Comment: will collect u/a and send to lab, pt to call office tomorrow to follow up, pt has appt with dr wallace sunday Disposition - Disposition OB Disposition: Discharge to home, Written follow up instructions reviewed Discharge Date: 01/15/20 Discharge Time: 13:58 I agree with the RN Medical Screening Exam: Yes Risk & Benefit of care provided described in d/c instruction: Yes Diagnosis: RELATED CONDITIONS, UNSPECIFIED, THIRD TRIMESTER
== END 2020-01-15 13:58 | disposition home or self-care (01) ==
LOC: FBPOP 12:44
PROVIDERS: ATTEND Obstetrics & Gynecology
DX: O26.93 Pregnancy related conditions, unspecified, third trimester (principal); Z3A.38 38 weeks gestation of pregnancy
CPT/HCPCS: 59025; 81003; 99213

== ENCOUNTER 2020-01-23 06:00 | Inpatient (IN) | payer OTHER ==
[2020-01-23] MEDS ORDERED: LIDOCAINE 0.5% (PF) 5 MG/ML (50 ML SDV) SQ PRN (08:11)
[2020-01-23] MEDS ORDERED: METHYLERGONOVINE 0.2 MG/ML 1 ML AMP IM PRN (08:11)
[2020-01-23] MEDS ORDERED: CARBOPROST TROMETHAMINE 250 MCG/ML 1 ML AMP IM PRN (08:11)
[2020-01-23] MEDS ORDERED: OXYTOCIN 10 UNIT/ML 1 ML VIAL IM PRN (08:11)
[2020-01-23] MEDS ORDERED: TERBUTALINE 1 MG/ML VIAL SQ PRN (08:11)
[2020-01-23] MEDS ORDERED: OXYTOCIN 30 UNITS/500 ML NS 30 UNIT in SALINE 1 500ML.BAG IV SCH (08:15)
[2020-01-23 08:26] LABS: Basophils % (A) 0 %; Eosinophils # (A) 0.1 k/uL (0-0.7); Eosinophils % (A) 1 %; HCT 34.7 % (34.0-46.0); HGB 10.9 gm/dL (11.4-16.0); Lymphocytes # (A) 2.3 k/uL (1.0-4.8); Lymphocytes % (A) 20 %; MCH 26.3 pg (25.0-35.0); MCHC 31.6 g/dL (31.0-37.0); MCV 83.2 fL (80.0-100.0); Mean Platelet Volume 9.2; Monocytes # (A) 0.6 k/uL (0-1.0); Monocytes % (A) 5 %; Neutrophils % (A) 71 %; Platelet Count 214 k/uL (150-450); RBC 4.17 m/uL (3.80-5.40); RDW 14.4 % (11.5-15.5); WBC 11.2 k/uL (3.8-10.6)
[2020-01-23] MEDS: LACTATED RINGERS 1,000 ML IV SCH ×3 (08:28→22:16)
[2020-01-23] MEDS ORDERED: CLINDAMYCIN 900 MG in DEXTROSE 5% IN WATER 50 ML IVPB SCH ×2 (09:00)
[2020-01-23] MEDS ORDERED: BUTORPHANOL 1 MG/ML 1 ML VIAL IV PRN (09:04)
[2020-01-23] MEDS ORDERED: MORPHINE SULFATE (PF) 0.3 MG/0.3 ML SYR ONE (11:05)
[2020-01-23] MEDS ORDERED: fentaNYL (PF) 50 MCG/ML 2 ML AMP ONE (11:05)
[2020-01-23] MEDS ORDERED: SUCCINYLCHOLINE CHLORIDE 100 MG/5 ML SYR IV ONE (11:05)
[2020-01-23] MEDS ORDERED: DEXAMETHASONE SOD PHOS (MDV) 100 MG/10 ML VIAL ONE (11:05)
[2020-01-23] MEDS ORDERED: PROPOFOL 10 MG/ML 20 ML VIAL IV ONE (11:05)
[2020-01-23] MEDS ORDERED: ONDANSETRON 4 MG/2 ML VIAL ONE (11:05)
[2020-01-23] MEDS ORDERED: KETOROLAC 30 MG/ML 1 ML VIAL ONE (11:05)
[2020-01-23] MEDS ORDERED: METOCLOPRAMIDE 5 MG/ML 2 ML VIAL IVP PRN (11:56)
[2020-01-23] MEDS ORDERED: NALOXONE 0.4 MG/ML 1 ML VIAL IV PRN ×2 (11:56→11:57)
[2020-01-23] MEDS ORDERED: ONDANSETRON 4 MG/2 ML VIAL IVP PRN (11:56)
[2020-01-23] MEDS ORDERED: diphenhydrAMINE 50 MG CAP PO PRN (11:56)
[2020-01-23] MEDS ORDERED: diphenhydrAMINE 25 MG CAP PO PRN (11:56)
[2020-01-23] MEDS ORDERED: ACETAMINOPHEN TAB 325 MG TAB PO PRN (11:56)
[2020-01-23] MEDS ORDERED: diphenhydrAMINE 50 MG/ML 1 ML VIAL IVP PRN (11:56)
[2020-01-23] MEDS ORDERED: ZOLPIDEM 5 MG TAB PO PRN (11:56)
[2020-01-23] MEDS ORDERED: LACTATED RINGERS 1,000 ML IV SCH (12:00)
--- NOTE | 2020-01-23 12:00 | P.HPOB ---
History of Present Illness H&P Date: 01/23/20 Chief Complaint: Intrauterine at term: Induction of labor Patient is a 24-year-old G531 at 39 weeks gestation who arrives for induction of labor. Her course had been unremarkable other than decreased movement which began at approximately 34 weeks. She is receiving nonstress tests and doing kick counts with no abnormal findings, she had initially a high normal ultrasound of amniotic fluid at 34 weeks but subsequent ultrasound revealed normal levels. She is feeling well at this time and we are expecting vaginal delivery. Pitocin augmentation of labor is planned. She was dilated to 3-4 cm 80% effaced -3 station. Artificial rupture membranes was performed and clear fluid is noted. Assessment intrauterine at term. Plan expect spontaneous vaginal delivery. She plans to use epidural for analgesia. She is groupie strep positive and a dose of Cleocin has been provided.. Past Medical History Past Medical History: No Reported History Additional Past Medical History / Comment(s): back pain History of Any Multi-Drug Resistant Organisms: None Reported Past Surgical History: Orthopedic Surgery Additional Past Surgical History / Comment(s): right ankle 2006 Past Anesthesia/Blood Transfusion Reactions: No Reported Reaction Past Psychological History: Anxiety, Depression Smoking Status: Former smoker Past Alcohol Use History: None Reported Past Drug Use History: None Reported - Past Family History Mother Family Medical History: No Reported History Medications and Allergies Home Medications Medication Instructions Recorded Confirmed Type No Known Home Medications 01/15/20 01/23/20 History Allergies Allergy/AdvReac Type Severity Reaction Status Date / Time Penicillins Allergy Intermediate Rash/Hives Verified 01/23/20 07:54 Exam Osteopathic Statement: *. No significant issues noted on an osteopathic structural exam other than those noted in the History and Physical/Consult. Vital Signs Temp Pulse Resp BP Pulse Ox 01/23/20 07:59 97.5 F L 117 H 16 125/82 100 Intake and Output 01/22/20 01/23/20 01/23/20 22:59 06:59 14:59 Other: Weight 89.358 kg - OBG Physical Exam Breast: both: normal (no masses) Abdomen: bowel sounds normal, no diffuse tenderness, no bruit present, no guarding noted, no hepatomegaly, no splenomegaly, no mass Vulva: both: normal Vagina: normal moisture, no discharge Cervix: no lesion, no discharge Uterus: normal size, normal contour Adnexa: both: normal Anus/Rectum: normal perianal skin, no rectal mass, no hemorrhoids, heme negative Results Result Diagrams: 01/23/20 08:00 Abnormal Lab Results - Last 24 Hours (Table) 01/23/20 Range/Units 08:00 WBC 11.2 H (3.8-10.6) k/uL Hgb 10.9 L (11.4-16.0) gm/dL Neutrophils # 8.0 H (1.3-7.7) k/uL
--- NOTE | 2020-01-23 12:04 | P.OP ---
Date of Procedure: 01/23/20 Preoperative Diagnosis: Intrauterine term: Nonreassuring heart tones Postoperative Diagnosis: Same Procedure(s) Performed: Primary low transverse section Anesthesia: MIRIAN, hayden Surgeon: Francisco Nichole Tele Grout Sewer Line Repairer #1: Radha Garcia Estimated Blood Loss (ml): 600 IV fluids (ml): 1,000 Urine output (ml): 200 Pathology: other (Placenta) Condition: stable Disposition: floor Operative Findings: During the labor process, heart tones had good variability initially but then began to decrease in variability. While she was on Pitocin and still dilated 3-4 cm there was recurrent decelerations that were difficult to label as either labor or variable, but there was minimal to no whef-kg-aplb variability during that process. Decision to make a section was then done between myself the patient and her family based on nonreassuring heart tones and remote from delivery with no real cervical change noted despite augmentation of labor with Pitocin. At time of delivery there was a face presentation noted and vacuum assistance to be able to bring the baby up into the incision was made. Once baby was delivered scores were 9 and 9 at one and 5 minutes respect ively and the weight was 7 lbs. 2 oz. Description of Procedure: Patient was taken to the operating suite where a spinal anesthetic was found to be inadequate. She continues to have pain despite waiting at least 5-7 minutes for the epidural to set up, she did not feel any relief. A general anesthetic was then done and found be adequate. A Pfannenstiel skin incision was then performed in this was carried through to underlying layer of the fascia. Fascia was then nicked in midline and this opening was extended laterally with Capone scissors. Superior and inferior aspect of this incision were then grasped tented up and bluntly and sharply dissected off the rectus muscles. Rectus muscles were then divided the midline and blunt dissection the peritoneum was made. This opening was then extended superiorly and inferiorly with good visualization of both bowel bladder. Bladder blade was then placed in the bladder flap identified. It was entered with Metzenbaum scissors and carried across face the uterus and then bluntly dissected out of the operative field. Knife was then used to incise uterus and this opening was then fully developed with a hemostat and extended bluntly. Once this was accomplished attempts were made to deliver the baby's head even rotating out of a face presentation. Once these attempts failed, a vacuum was used and pumped to the minimal mercury and with one gentle guided pull the baby's head was delivered. Vacuum was removed interim posterior shoulders were then easily delivered followed by the remainder the baby. Mouth nares were then bulb suctioned umbilical cord clamped cut usual fashion an nursery personnel present to assume care with spontaneous cry noted. Once this was completed placenta was then delivered and Pitocin was added to the IV. Uterus was then exteriorized cleared of clots and debris and closed in 2 layers with 0 Vicryl suture. Once excellent hemostasis was obtained blood and debris was suctioned from the posterior cul-de-sac and the uterus was reinserted into the abdomen. Peritoneal layer was then closed with 0 Vicryl suture. Fascial layers close with 0 Vicryl suture. One layer of 3-0 Vicryl was placed in the deep subcuticular tissues to reapproximate the skin and close space. Skin was then closed with 3-0 Vicryl subcuticularly. Sponge, lap, needle counts were all correct 2. Patient was then taken to the recovery room in stable and satisfactory condition.
[2020-01-23] MEDS ORDERED: HYDROmorphone PCA 10 MG/50 ML BAG IV PRN (12:30)
[2020-01-23] MEDS ORDERED: HYDROmorphone 1 MG/ML 1 ML SYRINGE IVP STA (14:00)
[2020-01-23] MEDS: diphenhydrAMINE 50 MG/ML 1 ML VIAL IVP PRN ×2 (14:04→19:54)
[2020-01-23] MEDS: SENNOSIDES-DOCUSATE SODIUM 1 EACH TAB PO SCH (21:56)
[2020-01-24] MEDS: KETOROLAC 30 MG/ML 1 ML VIAL IVP PRN ×2 (00:15→06:38)
[2020-01-24 06:29] LABS: Basophils % (A) 0 %; Eosinophils % (A) 0 %; HCT 30.5 % (34.0-46.0); HGB 9.5 gm/dL (11.4-16.0); Lymphocytes # (A) 2.6 k/uL (1.0-4.8); Lymphocytes % (A) 15 %; MCH 25.9 pg (25.0-35.0); MCHC 31.3 g/dL (31.0-37.0); MCV 82.7 fL (80.0-100.0); Mean Platelet Volume 9.3; Monocytes # (A) 0.9 k/uL (0-1.0); Monocytes % (A) 5 %; Neutrophils # (A) 14.1 k/uL (1.3-7.7); Neutrophils % (A) 78 %; Platelet Count 232 k/uL (150-450); RBC 3.69 m/uL (3.80-5.40); RDW 14.8 % (11.5-15.5)
[2020-01-24] MEDS: LACTATED RINGERS 1,000 ML IV SCH (06:49)
--- NOTE | 2020-01-24 07:44 | P.PNOBGPC ---
Subjective - Subjective Principal diagnosis: Postop day 1 Interval history: Doing very well. Involuting, voiding and tolerating her diet. She voices no points this time. We'll plan to increase diet today Patient reports: Reports appetite normal, Reports voiding normally, Reports pain well controlled, Reports ambulating normally : doing well Objective - Vital Signs Latest vital signs: Vital Signs Temp Pulse Resp BP Pulse Ox 01/24/20 04:00 98.1 F 91 16 120/79 98 01/24/20 00:00 98 F 91 15 123/68 98 01/23/20 20:00 98 F 80 15 130/70 98 01/23/20 16:00 99.4 F 81 16 128/75 96 01/23/20 14:00 98.0 F 79 16 117/72 100 01/23/20 13:30 65 16 104/62 100 01/23/20 13:00 97.2 F L 66 16 115/64 99 01/23/20 12:45 72 16 115/58 96 01/23/20 12:30 66 16 118/56 97 01/23/20 12:15 77 16 115/63 97 01/23/20 12:00 96.9 F L 89 16 116/60 94 L 01/23/20 07:59 97.5 F L 117 H 16 125/82 100 Intake and Output 01/23/20 01/24/20 01/24/20 22:59 06:59 14:59 Output Total 800 200 Balance -800 -200 Output: Urine 800 200 Uretheral ([place]) 800 Other: # Voids 1 - Exam Lungs: bilateral: normal Chest: Normal S1, Normal S2 Extremities: Present: normal Abdomen: Present: normal appearance, soft. Absent: distention, tenderness Incision: Present: normal, dry, intact Uterus: Present: normal, firm - Labs Labs: Abnormal Lab Results - Last 24 Hours (Table) 01/23/20 01/24/20 Range/Units 08:00 05:46 WBC 11.2 H 18.0 H (3.8-10.6) k/uL RBC 3.69 L (3.80-5.40) m/uL Hgb 10.9 L 9.5 L (11.4-16.0) gm/dL Hct 30.5 L (34.0-46.0) % Neutrophils # 8.0 H 14.1 H (1.3-7.7) k/uL
[2020-01-24] MEDS: SENNOSIDES-DOCUSATE SODIUM 1 EACH TAB PO SCH (09:15)
[2020-01-24] MEDS: IBUPROFEN 600 MG TAB PO PRN ×2 (11:30→18:33)
--- NOTE | 2020-01-24 13:32 | P.PN ---
Progress Note - Text Progress Note Date: 01/24/20 Postoperative day 1 status post section under spinal anesthesia, and i ntrathecal morphine given for postoperative analgesia, patient doing well, there is no anesthesia related complications, Patient had no headache, vital signs stable , Assessment and plan= postop day 1 status post , doing well there is no anesthesia related complication.
[2020-01-24] MEDS: SIMETHICONE 80 MG CHEWABLE PO PRN (14:22)
[2020-01-24] MEDS: HYDROcodone/APAP 7.5-325MG 1 EACH TAB PO PRN (19:57)
[2020-01-25] MEDS: SIMETHICONE 80 MG CHEWABLE PO PRN (00:04)
[2020-01-25] MEDS: IBUPROFEN 600 MG TAB PO PRN ×4 (00:04→23:42)
[2020-01-25] MEDS: SENNOSIDES-DOCUSATE SODIUM 1 EACH TAB PO SCH ×3 (00:59→19:44)
[2020-01-25] MEDS: HYDROcodone/APAP 7.5-325MG 1 EACH TAB PO PRN ×3 (03:01→18:48)
--- NOTE | 2020-01-25 09:41 | P.PNOBGPC ---
Subjective - Subjective Principal diagnosis: Postop day 2 Interval history: Patient is doing very well postop day 2. She is involuting, voiding tolerating her diet. She does have some peripheral swelling due to the section but otherwise she is doing well. She voices no other complaints. Vital signs are stable and afebrile. Patient reports: Reports appetite normal, Reports voiding normally, Reports pain well controlled, Reports ambulating normally [place]: doing well Objective - Vital Signs Latest vital signs: Vital Signs Temp Pulse Resp BP Pulse Ox 01/25/20 07:50 98.2 F 70 17 117/64 99 01/25/20 00:00 98 F 86 15 100/56 98 01/24/20 16:00 98.3 F 85 16 129/78 99 - Exam Lungs: bilateral: normal Chest: Normal S1, Normal S2 Extremities: Present: normal Abdomen: Present: normal appearance, soft. Absent: distention, tenderness Incision: Present: normal, dry, intact Uterus: Present: normal, firm
[2020-01-26] MEDS: HYDROcodone/APAP 7.5-325MG 1 EACH TAB PO PRN ×3 (03:08→15:33)
[2020-01-26] MEDS: SENNOSIDES-DOCUSATE SODIUM 1 EACH TAB PO SCH (08:59)
[2020-01-26 09:04] VITALS: RESP 18
[2020-01-26] MEDS: IBUPROFEN 600 MG TAB PO PRN ×2 (11:57→18:27)
[2020-01-26 16:56] VITALS: BP 127/71; PULSE 102; TEMP 98.2
== END 2020-01-26 20:22 | disposition home or self-care (01) | DRG 788 ==
LOC: 4FBP 07:15
PROVIDERS: ADMIT Obstetrics & Gynecology; ATTEND Obstetrics & Gynecology
PROC: 10D00Z1 Extraction of Products of Conception, Low, Open Approach (ICD-10-PCS; principal; 2020-01-23 11:00)
PROC: 10907ZC Drainage of Amniotic Fluid, Therapeutic from Products of Conception, Via Natural or Artificial Opening (ICD-10-PCS; principal; 2020-01-23 11:00)
PROC: 3E033VJ Introduction of Other Hormone into Peripheral Vein, Percutaneous Approach (ICD-10-PCS; principal; 2020-01-23 11:00)
DX: O32.3XX0 Maternal care for face, brow and chin presentation, not applicable or unspecified (principal); O76 Abnormality in fetal heart rate and rhythm complicating labor and delivery; Z37.0 Single live birth; Z3A.39 39 weeks gestation of pregnancy; Z87.891 Personal history of nicotine dependence; Z88.0 Allergy status to penicillin; Z86.59 Personal history of other mental and behavioral disorders
CPT/HCPCS: 85025; 86850; 86900; 86901; 88307

== ENCOUNTER 2023-10-17 17:58 | Emergency (ER) | payer OTHER ==
[2023-10-17] MEDS ORDERED: ONDANSETRON 4 MG/2 ML VIAL IVP STA (19:44)
[2023-10-17] MEDS ORDERED: SODIUM CHLORIDE 0.9% 1,000 ML IV STA (19:44)
--- NOTE | 2023-10-17 19:46 | ED ---
Nausea/Vomiting/Diarrhea HPI - General Source: patient, RN notes reviewed Mode of arrival: ambulatory Limitations: no limitations <Mickey Roque - Last Filed: 10/17/23 19:43> <Benny Tejeda - Last Filed: 10/17/23 23:03> - General Chief complaint: Nausea/Vomiting/Diarrhea Stated complaint: Vomiting Time Seen by Provider: 10/17/23 19:43 - History of Present Illness Initial comments: Patient sent in by her primary care provider, Dr. Alanis. Patient started having nausea, vomiting, diarrhea last night around midnight. Patient states she was checked for COVID-19 and influenza at her doctor's office today. Patient states both those tests were negative. She did have a urinalysis but did not receive results of that. Patient is complaining of mild back pain as well. No abdominal pelvic pain. Patient's boyfriend with similar symptoms although mild (JudeMickey) 28-year-old female presenting with chief complaint of nausea vomiting and diarrhea. Symptoms started around midnight. She wouldn't see her PCP today, she tested negative for Covid and influenza. States that they sent out a urinary analysis which she has not yet received the results. She admits to some diffuse abdominal discomfort. No localized pain. No chest pain or difficulty breathing. Patient also states that her boyfriend has similar symptoms. (Benny Tejeda) - Related Data Previous Rx's Medication Instructions Recorded Ondansetron Odt [Zofran Odt] 4 mg PO Q8HR PRN #20 tab 10/17/23 Allergies Allergy/AdvReac Type Severity Reaction Status Date / Time Penicillins Allergy Intermediate Rash/Hives Verified 06/08/20 11:38 Review of Systems ROS Other: All systems not noted in ROS Statement are negative. <Mickey Roque - Last Filed: 10/17/23 19:43> ROS Other: All systems not noted in ROS Statement are negative. <Benny Tejeda - Last Filed: 10/17/23 23:03> ROS Statement: Those systems with pertinent positive or pertinent negative responses have been documented in the HPI. Past Medical History Past Medical History: No Reported History Additional Past Medical History / Comment(s): back pain History of Any Multi-Drug Resistant Organisms: None Reported Past Surgical History: Orthopedic Surgery Additional Past Surgical History / Comment(s): right ankle 2006 Past Anesthesia/Blood Transfusion Reactions: No Reported Reaction Past Psychological History: Anxiety, Depression Smoking Status: Current every day smoker - Past Family History Mother Family Medical History: No Reported History <Mickey Roque - Last Filed: 10/17/23 19:43> General Exam Limitations: no limitations <Mickey Roque - Last Filed: 10/17/23 19:43> Limitations: no limitations General appearance: alert, in no apparent distress Head exam: Present: atraumatic, normocephalic, normal inspection Eye exam: Present: normal appearance, EOMI Neck exam: Present: normal inspection, full ROM Respiratory exam: Present: normal lung sounds bilaterally. Absent: respiratory distress, wheezes, rales, rhonchi, stridor Cardiovascular Exam: Present: regular rate, normal rhythm, normal heart sounds. Absent: systolic murmur, diastolic murmur, rubs, gallop, clicks GI/Abdominal exam: Present: soft. Absent: distended, tenderness, guarding, rebound, rigid Neurological exam: Present: alert, oriented X3 Psychiatric exam: Present: normal affect, normal mood Skin exam: Present: warm, dry, intact, normal color. Absent: rash <Benny Tejeda - Last Filed: 10/17/23 23:03> Course Vital Signs 10/17/23 18:20 Temperature 99.8 F H Pulse Rate 109 H Respiratory 20 Rate Blood Pressure 106/72 O2 Sat by Pulse 98 Oximetry Medical Decision Making <Mickey Roque - Last Filed: 10/17/23 19:43> - Lab Data Result diagrams: 10/17/23 20:17 10/17/23 20:17 <Benny Tejeda - Last Filed: 10/17/23 23:03> - Medical Decision Making Visual Physical Exam Vital signs reviewed General: Well-appearing, nontoxic, mild acute distress. Head: Normocephalic, atraumatic Eyes: PERRLA, EOMI ENT: Airway patent Chest: Nonlabored breathing Skin: No visual rash, normal skin tone Neuro: Alert and oriented 3 Musculoskeletal: No gross abnormalities Signed, Mickey Roque PA-C (Mickey Roque) Was pt. sent in by a medical professional or institution ([facility], RECREATION PROFESSOR, urgent care, hospital, or alf...) When possible be specific @ -sent by PCP Did you speak to anyone other than the patient for history (EMS, parent, family, police, friend...)? What history was obtained from this source @ -No Did you review nursing and triage notes (agree or disagree)? Why? @ -I reviewed and agree with nursing and triage notes Were old charts reviewed (outside hosp., previous admission, EMS record, old EKG, old radiological studies, urgent care reports/EKG's, alf records)? Report findings @ -No old charts were reviewed Differential Diagnosis (chest pain, altered mental status, abdominal pain women, abdominal pain men, vaginal bleeding, weakness, fever, dyspnea, syncope, headache, dizziness, GI bleed, back pain, seizure, CVA, palpatations, mental health, musculoskeletal)? @ -Differential includes gastroenteritis, UTI, pyelonephritis, cholecystitis, pancreatitis, this is not an all inclusive list EKG interpreted by me (3pts min.). @ -As above X-rays interpreted by me (1pt min.). @ -None done CT interpreted by me (1pt min.). @ -None done U/S interpreted by me (1pt. min.). @ -None done What testing was considered but not performed or refused? (CT, X-rays, U/S, labs)? Why? @ -None What meds were considered but not given or refused? Why? @ -None Did you discuss the management of the patient with other professionals (professionals i.e. , PA, RECREATION PROFESSOR, lab, RT, psych nurse, child welfare social worker, pawn shop keeper, teacher, branch lending officer, residential case manager)? Give summary @ -No Was smoking cessation discussed for >3mins.? @ -No Was critical care preformed (if so, how long)? @ -No Were there social determinants of health that impacted care today? How? (Homelessness, low income, unemployed, alcoholism, drug addiction, transportation, low edu. Level, literacy, decrease access to med. care, residential, rehab)? @ -No Was there de-escalation of care discussed even if they declined (Discuss DNR or withdrawal of care, Hospice)? DNR status @ -No What co-morbidities impacted this encounter? (DM, HTN, Smoking, COPD, CAD, Cancer, CVA, ARF, Chemo, Hep., AIDS, mental health diagnosis, sleep apnea, morbid obesity)? @ -None Was patient admitted / discharged? Hospital course, mention meds given and route, prescriptions, significant lab abnormalities, going to OR and other pertinent info. @ -28-year-old female presenting with chief complaint of nausea vomiting and diarrhea that started early this morning. History and physical exam are conducted. Lab work is grossly unremarkable. Urine shows no evidence of infectious process. Negative hCG. Patient reports improvement after IV fluids, Zofran, Reglan, and Toradol. Educated on today's findings and supportive management at home. Prescription for Zofran was sent to the pharmacy. Follow-up with PCP. Report back to ER with any new or worsening symptoms. Discussed return parameters and answered all questions. Patient conveyed verbal understanding and agreed to the plan. I discussed this case in detail with my attending Dr. Rae Undiagnosed new problem with uncertain prognosis? @ -No Drug Therapy requiring intensive monitoring for toxicity (Heparin, Nitro, Insulin, Cardizem)? @ -No Were any procedures done? @ -No Diagnosis/symptom? @ -Gastroenteritis Acute, or Chronic, or Acute on Chronic? @ -acute Uncomplicated (without systemic symptoms) or Complicated (systemic symptoms)? @ -Uncomplicated Side effects of treatment? @ -No Exacerbation, Progression, or Severe Exacerbation? @ -No Poses a threat to life or bodily function? How? (Chest pain, [place], [place], pneumonia, PE, COPD, DKA, ARF, appy, cholecystitis, CVA, Diverticulitis, Homicidal, Suicidal, threat to staff... and all critical care pts) @ -No (Benny Tejeda) - Lab Data Lab Results 10/17/23 10/17/23 10/17/23 Range/Units 19:45 19:45 20:17 WBC 6.8 (3.8-10.6) k/uL RBC 4.98 (3.80-5.40) m/uL Hgb 14.9 (11.4-16.0) gm/dL Hct 44.2 (34.0-46.0) % MCV 88.8 (80.0-100.0) fL MCH 30.0 (25.0-35.0) pg MCHC 33.7 (31.0-37.0) g/dL RDW 12.4 (11.5-15.5) % Plt Count 194 (150-450) k/uL MPV 8.3 Neutrophils % 86 % Lymphocytes % 9 % Monocytes % 3 % Eosinophils % 1 % Basophils % 0 % Neutrophils # 5.8 (1.3-7.7) k/uL Lymphocytes # 0.6 L (1.0-4.8) k/uL Monocytes # 0.2 (0-1.0) k/uL Eosinophils # 0.1 (0-0.7) k/uL Basophils # 0.0 (0-0.2) k/uL Sodium (137-145) mmol/L Potassium (3.5-5.1) mmol/L Chloride (98-107) mmol/L Carbon Dioxide (22-30) mmol/L Anion Gap mmol/L BUN (7-17) mg/dL Creatinine (0.52-1.04) mg/dL Est GFR (CKD-EPI)AfAm (>60 ml/min/1.73 sqM) Est GFR (CKD-EPI)NonAf (>60 ml/min/1.73 sqM) Glucose (74-99) mg/dL Calcium (8.4-10.2) mg/dL Total Bilirubin (0.2-1.3) mg/dL AST (14-36) U/L ALT (4-34) U/L Alkaline Phosphatase (38-126) U/L Total Protein (6.3-8.2) g/dL Albumin (3.5-5.0) g/dL Lipase (23-300) U/L Urine Color Yellow Urine Appearance Clear (Clear) Urine pH 5.5 (5.0-8.0) Ur Specific [place] 1.027 (1.001-1.035) Urine Protein Trace H (Negative) Urine Glucose (UA) Negative (Negative) Urine Ketones Negative (Negative) Urine Blood Small H (Negative) Urine Nitrite Negative (Negative) Urine Bilirubin Negative (Negative) Urine Urobilinogen <2.0 (<2.0) mg/dL Ur Leukocyte Esterase Negative (Negative) Urine RBC 6 H (0-5) /hpf Urine WBC 2 (0-5) /hpf Ur Squamous Epith Cells 1 (0-4) /hpf Urine Bacteria Rare H (None) /hpf Urine Mucus Many H (None) /hpf Urine HCG, Qual Not Detected (Not Detectd) 10/17/23 Range/Units 20:17 WBC (3.8-10.6) k/uL RBC (3.80-5.40) m/uL Hgb (11.4-16.0) gm/dL Hct (34.0-46.0) % MCV (80.0-100.0) fL MCH (25.0-35.0) pg MCHC (31.0-37.0) g/dL RDW (11.5-15.5) % Plt Count (150-450) k/uL MPV Neutrophils % % Lymphocytes % % Monocytes % % Eosinophils % % Basophils % % Neutrophils # (1.3-7.7) k/uL Lymphocytes # (1.0-4.8) k/uL Monocytes # (0-1.0) k/uL Eosinophils # (0-0.7) k/uL Basophils # (0-0.2) k/uL Sodium 139 (137-145) mmol/L Potassium 3.6 (3.5-5.1) mmol/L Chloride 102 (98-107) mmol/L Carbon Dioxide 23 (22-30) mmol/L Anion Gap 14 mmol/L BUN 12 (7-17) mg/dL Creatinine 0.65 (0.52-1.04) mg/dL Est GFR (CKD-EPI)AfAm >90 (>60 ml/min/1.73 sqM) Est GFR (CKD-EPI)NonAf >90 (>60 ml/min/1.73 sqM) Glucose 98 (74-99) mg/dL Calcium 9.6 (8.4-10.2) mg/dL Total Bilirubin 0.7 (0.2-1.3) mg/dL AST 23 (14-36) U/L ALT 24 (4-34) U/L Alkaline Phosphatase 55 (38-126) U/L Total Protein 7.6 (6.3-8.2) g/dL Albumin 4.8 (3.5-5.0) g/dL Lipase 66 (23-300) U/L Urine Color Urine Appearance (Clear) Urine pH (5.0-8.0) Ur Specific [place] (1.001-1.035) Urine Protein (Negative) Urine Glucose (UA) (Negative) Urine Ketones (Negative) Urine Blood (Negative) Urine Nitrite (Negative) Urine Bilirubin (Negative) Urine Urobilinogen (<2.0) mg/dL Ur Leukocyte Esterase (Negative) Urine RBC (0-5) /hpf Urine WBC (0-5) /hpf Ur Squamous Epith Cells (0-4) /hpf Urine Bacteria (None) /hpf Urine Mucus (None) /hpf Urine HCG, Qual (Not Detectd) Disposition <Mickey Roque - Last Filed: 10/17/23 19:43> Is patient prescribed a controlled substance at d/c from ED?: No Time of Disposition: 23:03 <Benny Tejeda - Last Filed: 10/17/23 23:03> Clinical Impression: Gastroenteritis Disposition: HOME SELF-CARE Condition: Good Instructions (If sedation given, give patient instructions): Gastroenteritis (ED) Additional Instructions: Follow-up with PCP. Report back to ER if any worsening symptoms. Prescriptions: Ondansetron Odt [Zofran Odt] 4 mg PO Q8HR PRN #20 tab PRN Reason: Nausea Referrals: Annabelle Urban MD [Primary Care Provider] - 1-2 days
[2023-10-17 20:23] LABS: Basophils % (A) 0 %; Eosinophils # (A) 0.1 k/uL (0-0.7); Eosinophils % (A) 1 %; HCT 44.2 % (34.0-46.0); HGB 14.9 gm/dL (11.4-16.0); Lymphocytes # (A) 0.6 k/uL (1.0-4.8); Lymphocytes % (A) 9 %; MCHC 33.7 g/dL (31.0-37.0); MCV 88.8 fL (80.0-100.0); Mean Platelet Volume 8.3; Monocytes # (A) 0.2 k/uL (0-1.0); Monocytes % (A) 3 %; Neutrophils # (A) 5.8 k/uL (1.3-7.7); Neutrophils % (A) 86 %; Platelet Count 194 k/uL (150-450); RBC 4.98 m/uL (3.80-5.40); RDW 12.4 % (11.5-15.5); WBC 6.8 k/uL (3.8-10.6)
[2023-10-17 20:42] LABS: ALT 24 U/L (4-34); AST 23 U/L (14-36); African American GFR (CKD) >90 (>60 ml/min/1.73 sqM); Albumin 4.8 g/dL (3.5-5.0); Alkaline Phosphatase 55 U/L (38-126); Anion Gap 14 mmol/L; Blood Urea Nitrogen 12 mg/dL (7-17); Calcium 9.6 mg/dL (8.4-10.2); Carbon Dioxide 23 mmol/L (22-30); Chloride 102 mmol/L (98-107); Glucose 98 mg/dL (74-99); Lipase 66 U/L (23-300); Non-African American GFR(CKD) >90 (>60 ml/min/1.73 sqM); Potassium 3.6 mmol/L (3.5-5.1); Sodium 139 mmol/L (137-145); Total Bilirubin 0.7 mg/dL (0.2-1.3); Total Protein 7.6 g/dL (6.3-8.2)
[2023-10-17] MEDS ORDERED: METOCLOPRAMIDE 5 MG/ML 2 ML VIAL IVP STA (22:27)
[2023-10-17] MEDS ORDERED: DICYCLOMINE 20 MG TAB PO STA (22:27)
[2023-10-17] MEDS ORDERED: KETOROLAC 15 MG/ML 1 ML VIAL IVP STA (22:27)
[2023-10-17 22:52] LABS: Appearance,Urine Clear (Clear); Bacteria,Urine Rare /hpf; Bilirubin,Urine Negative (Negative); Blood,Urine Small (Negative); Color,Urine Yellow; Glucose,Urine (UA) Negative (Negative); Ketones,Urine Negative (Negative); Leukocyte Esterase,Urine Negative (Negative); Mucus,Urine Many /hpf; Nitrite,Urine Negative (Negative); PH, Urine 5.5 (5.0-8.0); Protein,Urine Trace (Negative); RBC,Urine 6 /hpf (0-5); Specific Gravity,Urine 1.027 (1.001-1.035); Squamous Epithelial Cell,Urine 1 /hpf (0-4); Urobilinogen,Urine <2.0 mg/dL (<2.0); WBC,Urine 2 /hpf (0-5)
[2023-10-17 23:37] VITALS: BP 116/72; PULSE 72; RESP 18; TEMP 99.5
== END 2023-10-17 23:34 | disposition home or self-care (01) ==
LOC: EC 17:58
DX: K52.9 Noninfective gastroenteritis and colitis, unspecified (principal); F17.200 Nicotine dependence, unspecified, uncomplicated; Z88.0 Allergy status to penicillin; Z86.59 Personal history of other mental and behavioral disorders
CPT/HCPCS: 36415; 80053; 83690; 85025; 81001; 81025; 99284; 96374; 96375 ×2; 96361; J2765; J2405; J1885

== ENCOUNTER 2024-04-30 06:50 | Day surgery (SDC) | payer OTHER ==
[2024-04-25 16:45] VITALS: BMI 31.8
--- NOTE | 2024-04-29 10:15 | P.HPOR ---
History of Present Illness H&P Date: 04/29/24 Subjective: This is a 28 year old female that presents today for initial evaluation regarding a year-long history of bilateral finger masses. She states the masses are located on the back of the knuckles of the right ring finger and left the middle finger. She often has pain if she bumps them or when she tries to repetitively make a fist. Denies any injury or insighting event. She denies any numbness or tingling. Physical Examination: LUE: AIN/PIN/Radial/Ulnar/Median motor intact. Radial/Ulnar/Median SILT. 2+/4 Radial/Ulnar pulses palpated. 5/5 APB, 5/5 FDI. Negative Finkelsteins, negative CMC grind, negative Durkan's compression. Middle finger dorsal soft tissue mass 1cm located over PIP knuckle pad. RUE: AIN/PIN/Radial/Ulnar/Median motor intact. Radial/Ulnar/Median SILT. 2+/4 Radial/Ulnar pulses palpated. 5/5 APB, 5/5 FDI. Negative Finkelsteins, negative CMC grind, negative Durkan's compression. Ring finger dorsal soft tissue mass 1cm located over PIP knuckle pad. Imaging: X-Rays of the left middle finger 2V taken in office today demonstrates no abnormality. X-Rays of the right ring finger 2V taken in office today demonstrates no abnormality. Impression: 1.) Right ring finger soft tissue mass 2.) Left middle finger soft tissue mass Plan: Diagnosis and treatment options were discussed with the patient. We discussed non operative and operative treatment options. She would like to proceed with right ring finger and left middle finger soft tissue mass excision. Risks and benefits of surgery including bleeding, infection, damage to surrounding tissue, need for further surgery, residual numbness were discussed and the patient wished to go forward with surgery. -Julio Bray DO Orthopedic Hand/Upper Extremity Surgeon Past Medical History Past Medical History: No Reported History Additional Past Medical History / Comment(s): SOFT TISSUE MASSES ON BILAT HANDS History of Any Multi-Drug Resistant Organisms: None Reported Past Surgical History: Orthopedic Surgery Additional Past Surgical History / Comment(s): right ankle 2006 Past Anesthesia/Blood Transfusion Reactions: No Reported Reaction Smoking Status: Current every day smoker, Vaper - Past Family History Mother Family Medical History: No Reported History Medications and Allergies Home Medications Medication Instructions Recorded Confirmed Type No Known Home Medications 04/25/24 04/25/24 History Allergies Allergy/AdvReac Type Severity Reaction Status Date / Time Penicillins Allergy Intermediate Rash/Hives Verified 04/25/24 16:09 Physical Examination Osteopathic Statement: *. No significant issues noted on an osteopathic structural exam other than those noted in the History and Physical/Consult.
[2024-04-30] MEDS ORDERED: LACTATED RINGERS 1,000 ML IV SCH (07:15)
[2024-04-30 07:29] VITALS: TEMP 98.2
[2024-04-30] MEDS: LACTATED RINGERS 1,000 ML IV SCH (07:29)
[2024-04-30] MEDS ORDERED: PROPOFOL 10 MG/ML 20 ML VIAL IV ONE (07:51)
[2024-04-30] MEDS ORDERED: MIDAZOLAM 2 MG/2 ML VIAL ONE (07:51)
[2024-04-30] MEDS ORDERED: KETOROLAC 15 MG/ML 1 ML VIAL ONE (07:51)
[2024-04-30] MEDS ORDERED: fentaNYL (PF) 50 MCG/ML 2 ML AMP ONE (07:51)
[2024-04-30] MEDS: LIDOCAINE 2% INJ 20 MG/ML SQ ONE (08:04)
[2024-04-30] MEDS: BUPIVACAINE (PF) 0.5% 30 ML VIAL SQ ONE (08:04)
[2024-04-30 08:57] VITALS: RESP 16
[2024-04-30 09:49] VITALS: BP 118/62; PULSE 52
--- NOTE | 2024-04-30 11:43 | P.OP ---
Date of Procedure: 04/30/24 Preoperative Diagnosis: 1.) Right ring finger soft tissue mass 2.) Left middle finger soft tissue mass Postoperative Diagnosis: 1.) Right ring finger soft tissue mass 2.) Left middle finger soft tissue mass Procedure(s) Performed: 1.) Right ring finger soft tissue mass excision 2.) Left middle finger soft tissue mass excision Anesthesia: TERESSA Surgeon: Julio Bray Pathology: other (Right ring finger soft tissue mass, left middle finger soft tissue mass.) Description of Procedure: This is a 28 year old female who presents today for left middle finger and right ring finger soft tissue mass excision. Risks and benefits of surgery were discussed with the patient including bleeding, damage to surrounding tissue, infection, need for further surgery as well as risks of anesthesia including pulmonary embolism and even and the patient wished to proceed with surgical intervention. The patient was seen in the pre-operative area by myself. Consent and H&P were completed and updated. The correct extremity was marked in the pre-operative area by myself and all other questions were answered. Operative Narrative: The patient was brought to the operating room by the department of anesthesia. They remained on the portable stretcher and a rolling hand table was brought to the side of the operative extremity. Pre-operative time out was performed indicating the correct patient, procedure and laterality. All in the room agreed. Pre-operative antibiotics were given prior to skin incision. The patient was then drifted off to sleep by the department of anesthesia. Digital block was performed with 7cc's of 0.5% Lidocaine and 1% lidocaine in a 50:50 mixture on both the left middle finger and right ring finger. A nonsterile tourniquet was then applied to the operative extremity and the right and left upper extremity was then prepped and draped in normal sterile fashion. The operative extremity was the exsanguinated with an esmarch bandage and the tourniquet was inflated to 250mmHg. Attention was brought to the right ring finger. A curvlinear incision was made over the area of dorsal prominence on the dorsal aspect of the PIP joint. Blunt dissection was taken down through subcutaneous tissues, bovie was used for hemostasis. There was a 1x1cm oval shaped white mass adhered to the dorsal aspect of the central extensor tendon overlying the PIP joint. This was sharpley dissected off the extensor mechanism while leaving the extensor mechanism intact. The mass was collected and sent for pathology. Skin closure was performed with 4-0 nylon suture. Soft dressing was applied, tourniquet was let down and the hand had immediate perfusion. Attention was brought to the left middle finger. A curvlinear incision was made over the area of dorsal prominence on the dorsal aspect of the PIP joint. Blunt dissection was taken down through subcutaneous tissues, bovie was used for hemostasis. There was a 6x8mm oval shaped white mass adhered to the dorsal aspect of the central extensor tendon overlying the PIP joint. This was sharpley dissected off the extensor mechanism while leaving the extensor mechanism i ntact. The mass was collected and sent for pathology. Skin closure was performed with 4-0 nylon suture. Soft dressing was applied, tourniquet was let down and the hand had immediate perfusion. The patient was then woken by the department of anesthesia and transferred to PACU in stable condition. Julio Bray D.O. Orthopedic Hand/Upper Extremity Surgeon
[2024-05-01] MEDS ORDERED: HYDROmorphone 0.5 MG/0.5 ML SYRINGE IVP PRN (07:00)
== END 2024-04-30 10:05 | disposition home or self-care (01) ==
LOC: OR 06:50
PROVIDERS: ATTEND Orthopaedic Surgery Hand Surgery
DX: R22.31 Localized swelling, mass and lump, right upper limb (principal); R22.32 Localized swelling, mass and lump, left upper limb; F17.200 Nicotine dependence, unspecified, uncomplicated; Z88.0 Allergy status to penicillin
CPT/HCPCS: 26115 ×2; 81025; 88305; J2001; J2250; J0690; J3010; J1885; J2704; J0665